=== PATIENT | female | born 1990 | race Caucasian/White ===

== ENCOUNTER 2020-09-01 13:41 | Outpatient (REF) | payer OTHER, SELFPAY ==
[2020-09-01 14:02] LABS: Basophils Absolute Auto 0.1 X10*3/uL (0.0-0.2); Basophils Percent Auto 0.6 % (0-2); Eosinophils Percent Auto 0.4 % (0-4); Hematocrit 41.1 % (37-47); Hemoglobin 13.2 g/dl (12.0-16.0); Imm Gran Abs Auto 0.03 X10*3/uL (0.00-0.03); Imm Gran Pct Auto 0.3 % (0.0-0.4); Lymphocytes Absolute Auto 2.9 X10*3/uL (1.2-4.9); Lymphocytes Percent Auto 27.7 % (20-40); MANUAL DIFF FLAG NO; Mean Corpuscular HGB Conc 32.1 g/dl (31.0-35.0); Mean Corpuscular Hemoglobin 26.2 pg (27.0-33.0); Mean Corpuscular Volume 81.5 fL (80-98); Mean Platelet Volume 11.3 fL (9.4-12.3); Monocytes Absolute Auto 0.8 X10*3/uL (0.1-1.2); Monocytes Percent Auto 7.6 % (2-11); Neutrophils Absolute Auto 6.5 X10*3/uL (2.0-8.3); Neutrophils Percent Auto 63.4 % (45-73); Platelet Count 304 X10*3/uL (160-400); Red Blood Count 5.04 X10*6/uL (4.20-5.50); Red Cell Distribution Width 14.8 % (11.0-16.0); White Blood Count 10.3 X10*3/uL (4.8-10.8)
[2020-09-01 14:48] LABS: Alanine Aminotransferase 15 U/L (0-31); Albumin Level 4.3 g/dL (3.5-5.0); Alkaline Phosphatase 93 U/L (39-117); Anion Gap 11 (12-20); Aspartate Amino Transferase 13 U/L (5-31); Bilirubin Total 0.7 mg/dL (0.0-1.0); Blood Urea Nitrogen 7 mg/dL (9-16); Calcium 9.2 mg/dL (8.4-10.2); Carbon Dioxide 26 mmol/L (22-29); Chloride 107 mmol/L (96-108); Cholesterol 109 mg/dL; Estimated Glomerular Filt Rate > 60; Glucose Fasting 96 mg/dL (60-99); HDL Cholesterol 39 mg/dL; LDL Cholesterol Calculated 53 mg/dl; Sodium 140 mmol/L (135-145); Total Protein 6.9 g/dL (6.5-8.0); Triglycerides 88 mg/dL
[2020-09-01 15:10] LABS: TSH reflex Free T4 0.93 uIU/mL (0.32-4.0)
== END 2020-09-01 13:42 | disposition home or self-care (01) ==
LOC: HO.LAB 13:41
PROVIDERS: Visit Provider Internal Medicine
DX: I10 Essential (primary) hypertension (principal); E78.5 Hyperlipidemia, unspecified; E83.42 Hypomagnesemia; E87.6 Hypokalemia; E78.00 Pure hypercholesterolemia, unspecified; R00.2 Palpitations
CPT/HCPCS: 36415; 80053; 80061; 84443; 85025

== ENCOUNTER 2021-01-06 09:19 | Outpatient (REF) | payer OTHER, SELFPAY ==
--- NOTE | ~2021-01-06 | XR_ITS ---
EXAMINATION: XR CERVICAL SPINE CLINICAL INFORMATION: Cervicalgia. COMPARISON: None TECHNIQUE: 3 views of the cervical spine were obtained. FINDINGS: There is straightening of the cervical lordosis and mild rightward tilting on frontal view. The vertebral bodies are normal in height and there is no cervical vertebral compression, spondylolisthesis, destructive process, or prevertebral soft tissue swelling. The odontoid appears intact. There is some minor spurring anteriorly at C5-C6. No focal disc narrowing or endplate sclerosis or erosive changes. XR/XR cervical spine 2V IMPRESSION: 1. Straightening of the cervical lordosis. 2. Mild anterior spurring at C5-C6. 3. No vertebral compression, disc narrowing, or subluxation.
== END 2021-01-06 09:20 | disposition home or self-care (01) ==
LOC: HO.XRAY 09:19
PROVIDERS: PCP Internal Medicine; Visit Provider Nurse Practitioner Family
DX: M54.2 Cervicalgia (principal)
CPT/HCPCS: 72040

== ENCOUNTER 2021-12-19 07:38 | Outpatient (REF) | payer OTHER, SELFPAY ==
--- NOTE | ~2021-12-19 | XR_ITS ---
EXAMINATION: CHEST AND ABDOMEN. CLINICAL INFORMATION: Hemoptysis. COMPARISON: None TECHNIQUE: Chest 2 views. Abdomen 2 views. FINDINGS: CHEST: The lungs are well-expanded and clear of acute process. The heart size and pulmonary vascularity is normal. No gross bony abnormality seen. ABDOMEN: There is scattered stool and gas seen throughout the colon without any significant distention. The small bowel loops are normal caliber. There is no organomegaly. There is abnormal segmentation of lumbar vertebrae with 6 lumbar vertebrae noted. No lytic or sclerotic process seen. XR/XR chest 2V IMPRESSION: Unremarkable chest exam. Mild constipation.
--- NOTE | ~2021-12-19 | XR_ITS ---
EXAMINATION: CHEST AND ABDOMEN. CLINICAL INFORMATION: Hemoptysis. COMPARISON: None TECHNIQUE: Chest 2 views. Abdomen 2 views. FINDINGS: CHEST: The lungs are well-expanded and clear of acute process. The heart size and pulmonary vascularity is normal. No gross bony abnormality seen. ABDOMEN: There is scattered stool and gas seen throughout the colon without any significant distention. The small bowel loops are normal caliber. There is no organomegaly. There is abnormal segmentation of lumbar vertebrae with 6 lumbar vertebrae noted. No lytic or sclerotic process seen. XR/XR abdomen min 2V IMPRESSION: Unremarkable chest exam. Mild constipation.
[2021-12-19 08:17] LABS: MANUAL DIFF FLAG NO
[2021-12-19 08:27] LABS: Basophils Absolute Auto 0.1 X10*3/uL (0.0-0.2); Basophils Percent Auto 0.8 % (0-2); Eosinophils Absolute Auto 0.1 X10*3/uL (0.0-0.4); Eosinophils Percent Auto 1.8 % (0-4); Hematocrit 40.8 % (37.0-47.0); Hemoglobin 13.2 g/dl (12.0-16.0); Imm Gran Abs Auto 0.01 X10*3/uL (0.00-0.03); Imm Gran Pct Auto 0.1 % (0.0-0.4); Lymphocytes Absolute Auto 2.2 X10*3/uL (1.2-4.9); Lymphocytes Percent Auto 30.1 % (20-40); Mean Corpuscular HGB Conc 32.4 g/dl (31.0-35.0); Mean Corpuscular Hemoglobin 27.1 pg (27.0-33.0); Mean Corpuscular Volume 83.8 fL (80.0-98.0); Mean Platelet Volume 10.5 fL (9.4-12.3); Monocytes Absolute Auto 0.6 X10*3/uL (0.1-1.2); Neutrophils Absolute Auto 4.4 x10*3/uL (2.0-8.3); Neutrophils Percent Auto 59.2 % (45-73); Platelet Count 303 X10*3/uL (160-400); Red Blood Count 4.87 X10*6/uL (4.20-5.50); Red Cell Distribution Width 13.8 % (11.0-16.0); White Blood Count 7.4 X10*3/uL (4.8-10.8)
[2021-12-19 08:50] LABS: Alanine Aminotransferase 13 U/L (0-31); Alkaline Phosphatase 120 U/L (39-117); Anion Gap 12 (12-20); Aspartate Amino Transferase 13 U/L (5-31); Bilirubin Total 0.6 mg/dL (0.0-1.0); Blood Urea Nitrogen 9 mg/dL (9-16); Calcium 9.5 mg/dL (8.4-10.2); Carbon Dioxide 20 mmol/L (22-29); Chloride 110 mmol/L (96-108); Cholesterol 138 mg/dL; Estimated Glomerular Filt Rate > 60; Glucose Fasting 120 mg/dL (60-99); HDL Cholesterol 39 mg/dL; LDL Cholesterol Calculated 87 mg/dl; Sodium 138 mmol/L (135-145); Total Protein 6.8 g/dL (6.5-8.0); Triglycerides 63 mg/dL
[2021-12-19 09:14] LABS: TSH reflex Free T4 1.13 uIU/mL (0.32-4.0); Vitamin D 25-OH Total 12.1 ng/mL (>30)
[2021-12-19 09:44] LABS: Appearance Urine HAZY; Color Urine YELLOW; Glucose Urine UA NEG (NEG); Leukocyte Esterase Urine NEG (NEG); Nitrite Urine NEG (NEG); Specific Gravity - Urine >= 1.030 (1.005-1.025); UACC Culture Trigger NO; Urine Blood TRACE (NEG); Urine Ketones NEG (NEG); Urine Protein NEG (NEG-TRACE)
[2021-12-19 09:54] LABS: Mucus Urine 2+ /LPF; RBC Urine 0-2 /HPF (0); Squamous Epithelial Cell Urine 2+ /LPF; WBC Urine 0-2 /HPF (0-4)
[2021-12-20 05:01] LABS: DHEA Sulfate 232 mcg/dL (19-237)
[2021-12-23 17:48] LABS: Testosterone, Total 34 ng/dL (2-45)
== END 2021-12-19 07:39 | disposition home or self-care (01) ==
LOC: HO.LAB 07:38
PROVIDERS: PCP Internal Medicine; Visit Provider Internal Medicine
DX: Z00.00 Encounter for general adult medical examination without abnormal findings (principal); R10.9 Unspecified abdominal pain; U07.1 COVID-19; R04.2 Hemoptysis; K59.00 Constipation, unspecified; L67.8 Other hair color and hair shaft abnormalities; E55.9 Vitamin D deficiency, unspecified
CPT/HCPCS: 36415; 71046; 74019; 80053; 80061; 81001; 82306; 82627; 84402; 84403; 84443; 85025

== ENCOUNTER → 2022-01-12 10:21 | Outpatient (BNVA) | payer OTHER, SELFPAY | PROVIDERS: PCP Internal Medicine; Visit Provider Nurse Practitioner | DX: R10.11 Right upper quadrant pain (principal); R19.7 Diarrhea, unspecified; K64.9 Unspecified hemorrhoids | CPT/HCPCS: 99202 ==

== ENCOUNTER 2022-08-16 08:47 | Outpatient (REF) | payer OTHER, SELFPAY ==
[2022-08-16 11:58] LABS: MANUAL DIFF FLAG NO
[2022-08-16 12:15] LABS: Basophils Percent Auto 0.4 % (0-2); Eosinophils Absolute Auto 0.1 X10*3/uL (0.0-0.4); Eosinophils Percent Auto 1.5 % (0-4); Hematocrit 40.8 % (37.0-47.0); Hemoglobin 13.3 g/dl (12.0-16.0); Imm Gran Abs Auto 0.02 X10*3/uL (0.00-0.03); Imm Gran Pct Auto 0.3 % (0.0-0.4); Lymphocytes Absolute Auto 2.3 X10*3/uL (1.2-4.9); Lymphocytes Percent Auto 31.6 % (20-40); Mean Corpuscular HGB Conc 32.6 g/dl (31.0-35.0); Mean Corpuscular Hemoglobin 27.4 pg (27.0-33.0); Mean Corpuscular Volume 84.1 fL (80.0-98.0); Mean Platelet Volume 11.7 fL (9.4-12.3); Monocytes Absolute Auto 0.6 X10*3/uL (0.1-1.2); Monocytes Percent Auto 7.8 % (2-11); Neutrophils Absolute Auto 4.3 x10*3/uL (2.0-8.3); Neutrophils Percent Auto 58.4 % (45-73); Platelet Count 313 X10*3/uL (160-400); Red Blood Count 4.85 X10*6/uL (4.20-5.50); Red Cell Distribution Width 13.9 % (11.0-16.0); White Blood Count 7.3 X10*3/uL (4.8-10.8)
[2022-08-16 12:50] LABS: Alanine Aminotransferase 11 U/L (0-31); Albumin Level 4.3 g/dL (3.5-5.0); Alkaline Phosphatase 111 U/L (39-117); Anion Gap 15 (12-20); Aspartate Amino Transferase 13 U/L (5-31); Bilirubin Total 0.6 mg/dL (0.0-1.0); Blood Urea Nitrogen 8 mg/dL (9-16); C Reactive Protein 0.33 mg/dL (< or = 0.50); Calcium 9.3 mg/dL (8.4-10.2); Carbon Dioxide 23 mmol/L (22-29); Chloride 108 mmol/L (96-108); Estimated Glomerular Filt Rate > 60; Glucose Random 103 mg/dL (60-115); Potassium 4.5 mmol/L (3.3-5.1); Sodium 141 mmol/L (135-145); TSH reflex Free T4 1.19 uIU/mL (0.32-4.0); Total Protein 6.8 g/dL (6.5-8.0); Vitamin D 25-OH Total 29.5 ng/mL (>30)
[2022-08-16 12:52] LABS: Estimated Average Glucose 94 mg/dL; Hemoglobin A1c % 4.9 %
[2022-08-16 12:55] LABS: Erythrocyte Sedimentation Rate 5 MM/HR (0-20)
[2022-08-19 19:09] LABS: CK-BB None Detected (None Detected); CK-MB 0 % (<5); CK-MM 100 % (95-100); Creatine Kinase,Total,Serum 56 U/L (29-143)
== END 2022-08-16 08:48 | disposition home or self-care (01) ==
LOC: HO.HMGCLDS 08:47
PROVIDERS: Visit Provider Internal Medicine
DX: E55.9 Vitamin D deficiency, unspecified (principal); M79.10 Myalgia, unspecified site; R53.83 Other fatigue; R73.9 Hyperglycemia, unspecified
CPT/HCPCS: 36415; 80053; 82306; 82552; 83036; 84443; 85025; 85652; 86140

== ENCOUNTER 2022-11-23 12:51 | Outpatient (AMB) | payer OTHER, SELFPAY ==
[2022-11-23 13:03] VITALS: BP 122/80; PULSE 101; O2SAT 99; BMI 30.4
--- NOTE | 2022-11-23 13:03 | MHC.PC.OV ---
Vital Signs 11/23/22 13:03 11/23/22 13:39 Height 5 ft 4 in Weight 177 lb 6 oz BMI 30.4 BP 122/80 136/88 Blood Pressure Location Lt brachial Lt brachial Position Sitting Sitting Pulse 101 H Pulse Source Pulse Oximeter Pulse Oximetry (%) 99 Oxygen Delivery Method Room Air Intake Visit Reasons: PE Intake Note: Patient is here for a physicazl exam. Slipman Required: No Accompanied by: Self / Same As Patient Allergies atenolol Allergy (Verified 09/14/24 14:57) Rash phentermine Adverse Reaction (Severe, Verified 09/14/24 14:57) very high blood pressure Medication List - Last Reconciled 11/23/22 by Markie Bowers MD acetaminophen (Tylenol Extra Strength) 500 mg PO Q6H PRN cholecalciferol (vitamin D3) 50 mcg PO DAILY 90 days dicyclomine 10 mg PO QID hydrocortisone 2.5% (Proctosol HC) 1 appl UT BID PRN hydroxyzine HCl 25 mg PO TID PRN 30 days metoprolol succinate ER 25 mg PO DAILY 90 days Tobacco use date assessed: 11/23/22 HPI PE HPI Details Patient comes in today for her annual physical examination States that she feels okay Denies any headaches or dizziness Denies any chest pains, no SOB No nausea/vomiting, no abdominal pain No change in bowel habits noted Denies any acute urinary symptoms Needs her Metoprolol Rx refilled Would like to know how she did on her labs done back in July 2022 [facility] Medical History (Updated 09/15/24 @ 22:32 by Markie Bowers MD) Vitamin D deficiency Constipation Neck pain Elevated blood pressure reading Obesity (BMI 30-39.9) Palpitations Hypokalemia Hypomagnesemia Anxiety Surgical History History of tonsillectomy Hx of tubal ligation (~2018) Hx of section Family History Mother Diabetes Father Mental problem Social History Housing: Apartment Alcohol intake: never Patient Tobacco Use Status: Never used Tobacco e-Cigarette/Vaping Use: Never Used Second Hand Smoke Exposure: No service: No Current occupational status: employed 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 1. Little interest or pleasure in doing things: not at all 2. Feeling down, depressed, or hopeless: not at all 3. Trouble falling or staying asleep, or sleeping too much: not at all 4. Feeling tired or having little energy: not at all 5. Poor appetite or overeating: not at all 6. Feeling bad about yourself - or that you are a failure or have let yourself or your family down: not at all 7. Trouble concentrating on things, such as reading the newspaper or watching television: not at all 8. Moving or speaking so slowly that other people could have noticed. Or the opposite - being so fidgety or restless that you have been moving around a lot more than usual: not at all 9. Thoughts that you would be better off or of hurting yourself in some way: not at all Total score: 0 Depression Screening Interpretation: Negative 99969 - PHQ-9 Billing: Yes Source: Developed by Drs. Marcus Quigley, Edith Pineda, Mike Orosco and colleagues, with an educational nils from [employer]. Thrive Questionnaire Date Thrive assessed: 11/23/22 I am a: Patient What is your living situation today?: I have a steady place to live Within the past 12 months, did the food you bought not last and you didn't have the money to get more?: Never true Within the past 12 months, did you worry whether your food would run out before you got money to buy more?: Never true Do you have trouble paying for medicines?: No Do you have trouble getting transportation to medical appointments?: No Do you have trouble paying your heating and electricity bill?: No Do you have trouble taking care of your child, family member or friend?: No Do you have trouble with day-to-day activities such as bathing, preparing meals, shopping, managing finances, etc.?: No Are you currently unemployed and looking for a job?: No Are you interested in more education?: No Currently or been in a relationship where the following occur: no concerns reported AUDIT C Alcohol Use Questionnaire (AUDIT-C) 1. How often do you have a drink containing alcohol?: Never 3. How often do you have six or more drinks on one occasion?: Never Total Score: 0 Score Reviewed/Action Taken: Yes CHARLES-7 AMB Questionnaire CHARLES-7 Date CHARLES - 7 assessed: 11/23/22 Feeling nervous, anxious, or on edge: 1 = Several days (about once a week) Not being able to stop or control worryin = Several days (about once a week) Worrying too much about different things: 0 = Not at all Trouble relaxin = Not at all Being so restless that it is hard to sit still: 0 = Not at all Becoming easily annoyed or irritable: 0 = Not at all Feeling afraid as if something awful might happen: 3 = Nearly every day Total CHARLES-7 score (0-4 normal; 5-9 mild; 10-14 moderate; 15-21 severe): 5 Source: Developed by Drs. Marcus Quigley, Edith Pineda, Mike Orosco and colleagues, with an educational nils from [employer]. CHARLES-7 Assessment Billing CHARLES-7 Assessment Tool: CHARLES-7 Assessment 62704 Review of Systems Const Denies chills, Denies fatigue, Denies fever(s), Denies headache(s) and Denies malaise Eyes Denies blurry vision, Denies change in vision, Denies irritation and Denies itchy eyes ENT Denies dysphagia, Denies dizziness, Denies otalgia, Denies headache(s), Denies nasal congestion, Denies neck pain, Denies odynophagia, Denies sinus pain and Denies sore throat Card Denies chest pain, Denies rapid heart rate, Denies irregular heart rhythm, Denies palpitations and Denies dyspnea Resp Denies chest congestion, Denies cough, Denies dyspnea and Denies wheezing GI Denies abdominal pain, Denies bloating, Denies constipation, Denies dysphagia, Denies heartburn, Denies diarrhea, Denies nausea, Denies odynophagia and Denies vomiting Denies hematuria, Denies urinary frequency, Denies dysuria, Denies urinary incontinence and Denies urinary urgency Musc Denies back pain, Denies arthralgias, Denies joint swelling, Denies muscle weakness and Denies neck pain Skin/Breast Denies breast pain, Denies breast mass, Denies change in pigmentation, Denies lesions, Denies rash and Denies unusual bruising Neuro Denies dizziness, Denies headache(s) and Denies paresthesias Psych Denies anxiety and Denies depression Endo Denies fatigue and Denies palpitations Karl/Lymph Denies easy bruising Aller/Immun Denies itchy eyes and Denies wheezing Physical exam (Primary Care) Vital Signs: Last Vital Signs Pulse 101 H 11/23/22 13:03 BP 136/88 11/23/22 13:39 Pulse Ox 99 11/23/22 13:03 Oxygen Delivery Method Room Air 11/23/22 13:03 BMI result Body Mass Index 30.4 Tobacco/Smoking Status: Tobacco use Status Tobacco use date assessed 11/23/22 11/23/22 13:11 Patient Tobacco Use Status Never used Tobacco 11/23/22 13:11 e-Cigarette/Vaping Use Never Used 11/23/22 13:11 PHQ-9: PHQ-9 Score PHQ-9: Total score 0 11/23/22 13:42 Depression Screening Interpretation: Negative Thrive Assessment: Date of Thrive Assessment Date Thrive assessed 11/23/22 11/23/22 13:11 Currently or been in a relationship where the following occur: no concerns reported Const General: no acute distress, alert and awake Orientation/consciousness: patient oriented x3 HENMT Head: Yes normocephalic and Yes atraumatic Ears: external ears normal, TM's normal bilaterally and EAC's normal General nose exam: No nasal discharge present Face and sinus: Yes normal facial exam and Yes sinuses nontender Teeth and gingiva: dentition normal Throat: Yes posterior oropharynx normal and Yes tonsils normal (no TP congestion) Eyes Eyelids: Yes eyelids normal Conjunctivae: conjunctivae normal Pupils: Equal, round and reactive pupils present EOM: EOMs intact bilaterally Neck Neck: Yes no lymphadenopathy and Yes supple Thyroid: Thyroid normal Resp Auscultation: clear to auscultation bilaterally, no rales and no wheezes Cardio Rate: regular rate Rhythm: regular rhythm Heart sounds: no murmurs GI Palpation (GI): Soft to palpation, nontender and No hepatosplenomegaly present Auscultation: normal bowel sounds General: Yes no CVA tenderness Back/Spine/Pelvis Back: no CVA tenderness Thoracic/Lumbar Spine: thoracic and lumbar spine normal to inspection Skin Lesions: no lesions Rashes: no rashes Neuro General: patient oriented x3, moves all extremities, no focal motor deficits and CN's II-XI intact bilaterally Cranial nerves: Yes Equal, round and reactive pupils present Cognition (Neuro): normal cognition Gait exam (Neuro): Normal gait present Extrem General: Yes no clubbing, cyanosis or edema Results Reviewed Results Reviewed: Laboratory Tests 08/16/22 08/16/22 08/16/22 09:01 09:01 09:01 WBC 7.3 Hgb 13.3 Hct 40.8 Plt Count 313 ESR 5 Sodium 141 Potassium 4.5 Creatinine 0.81 Estimated GFR > 60 Random Glucose 103 Hemoglobin A1c % Calcium 9.3 AST 13 ALT 11 C-Reactive Protein 0.33 25-OH Vitamin D Total 29.5 TSH 1.19 08/16/22 09:01 WBC Hgb Hct Plt Count ESR Sodium Potassium Creatinine Estimated GFR Random Glucose Hemoglobin A1c % 4.9 Calcium AST ALT C-Reactive Protein 25-OH Vitamin D Total TSH Coding Level of Care Code Est Pt Prev Care 18-39y(03200) Diagnoses Annual physical exam Z00.00 Elevated blood pressure reading R03.0 Palpitations R00.2 Vitamin D deficiency E55.9 Constipation, unspecified constipation type K59.00 Constipation type: unspecified constipation type Anxiety F41.9 Obesity (BMI 30-39.9) E66.9 Additional Codes CHARLES-7 Assessment Billing - CHARLES-7 Assessment Tool: CHARLES-7 Assessment [id number] ([id number])
[2022-11-23 13:39] VITALS: BP 136/88
== END 2022-11-23 13:37 | disposition home or self-care (01) ==
LOC: HO.HMGH 12:51
PROVIDERS: PCP Internal Medicine; Visit Provider Internal Medicine
DX: Z00.00 Encounter for general adult medical examination without abnormal findings (principal); R03.0 Elevated blood-pressure reading, without diagnosis of hypertension; R00.2 Palpitations; E55.9 Vitamin D deficiency, unspecified; K59.00 Constipation, unspecified; F41.9 Anxiety disorder, unspecified; E66.9 Obesity, unspecified
CPT/HCPCS: 99499

== ENCOUNTER 2023-06-08 13:03 | Outpatient (AMB) | payer OTHER, SELFPAY ==
[2023-06-08 13:06] VITALS: BP 138/90; PULSE 86; O2SAT 99; BMI 31.8
--- NOTE | 2023-06-08 13:06 | A.OFFPC_ITS ---
Vital Signs 06/08/23 13:06 Height 5 ft 4 in Weight 185 lb BMI 31.8 BP 138/90 H Blood Pressure Location Lt brachial Position Sitting Pulse 86 Pulse Source Pulse Oximeter Pulse Oximetry (%) 99 Oxygen Delivery Method Room Air Intake Visit Reasons: Hypertension Surgical First Assistant Required: No Accompanied by: Self / Same As Patient Allergies atenolol Allergy (Verified 06/08/23 13:07) Rash Tobacco use date assessed: 06/08/23 Dental Screening Dental Screen Date: 06/08/23 Did you have a dental visit in the last 12 months?: Yes Did you have a dental problem in the last 6 months where you did not have access to dental care?: No Was dental information given to patient?: Patient has dentist [facility] Medical History Anxiety Constipation Dyslipidemia Elevated blood pressure reading High blood pressure High cholesterol Hypertension Hypokalemia Hypomagnesemia Neck pain Obesity (BMI 30-39.9) Palpitations Vitamin D deficiency Surgical History History of tonsillectomy Hx of tubal ligation (~2019) Hx of section Family History Mother Diabetes Father Mental problem Housing: Apartment Alcohol intake: never Patient Tobacco Use Status: Never used Tobacco e-Cigarette/Vaping Use: Never Used Second Hand Smoke Exposure: No service: No Current occupational status: employed 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 1. Little interest or pleasure in doing things: not at all 2. Feeling down, depressed, or hopeless: not at all 3. Trouble falling or staying asleep, or sleeping too much: not at all 4. Feeling tired or having little energy: not at all 5. Poor appetite or overeating: not at all 6. Feeling bad about yourself - or that you are a failure or have let yourself or your family down: not at all 7. Trouble concentrating on things, such as reading the newspaper or watching television: not at all 8. Moving or speaking so slowly that other people could have noticed. Or the opposite - being so fidgety or restless that you have been moving around a lot more than usual: not at all 9. Thoughts that you would be better off or of hurting yourself in some way: not at all Total score: 0 Depression Screening Interpretation: Negative Depression Screening Done: Yes [id number] - PHQ-9 Billing: Yes Source: Developed by Drs. Marcus Quigley, Edith Pineda, Mike Orosco and colleagues, with an educational nils from [employer]. Thrive Questionnaire Date Thrive assessed: 06/08/23 I am a: Patient What is your living situation today?: I have a steady place to live Within the past 12 months, did the food you bought not last and you didn't have the money to get more?: Never true Within the past 12 months, did you worry whether your food would run out before you got money to buy more?: Never true Do you have trouble paying for medicines?: No Do you have trouble getting transportation to medical appointments?: No Do you have trouble paying your heating and electricity bill?: No Do you have trouble taking care of your child, family member or friend?: No Do you have trouble with day-to-day activities such as bathing, preparing meals, shopping, managing finances, etc.?: No Are you currently unemployed and looking for a job?: No Are you interested in more education?: No Please select the resources that you would like help with: None Currently or been in a relationship where the following occur: no concerns reported AUDIT C Alcohol Use Questionnaire (AUDIT-C) 1. How often do you have a drink containing alcohol?: Never 3. How often do you have six or more drinks on one occasion?: Never Total Score: 0 Score Reviewed/Action Taken: Yes CHARLES-7 AMB Questionnaire CHARLES-7 Date CHARLES - 7 assessed: 06/08/23 Feeling nervous, anxious, or on edge: 1 = Several days (about once a week) Not being able to stop or control worryin = Several days (about once a week) Worrying too much about different things: 0 = Not at all Trouble relaxin = Not at all Being so restless that it is hard to sit still: 0 = Not at all Becoming easily annoyed or irritable: 0 = Not at all Feeling afraid as if something awful might happen: 3 = Nearly every day Total CHARLES-7 score (0-4 normal; 5-9 mild; 10-14 moderate; 15-21 severe): 5 Source: Developed by Drs. Marcus Quigley, Edith Pineda, Mike Orosco and colleagues, with an educational nils from [employer]. CHARLES-7 Assessment Billing CHARLES-7 Assessment Tool: CHARLES-7 Assessment 45134 Physical exam (Primary Care) Vital Signs: Last Vital Signs Pulse 86 06/08/23 13:06 BP 138/90 H 06/08/23 13:06 Pulse Ox 99 06/08/23 13:06 Oxygen Delivery Method Room Air 06/08/23 13:06 BMI result Body Mass Index 31.8 Tobacco/Smoking Status: Tobacco use Status Tobacco use date assessed 06/08/23 06/08/23 13:07 Patient Tobacco Use Status Never used Tobacco 06/08/23 13:07 e-Cigarette/Vaping Use Never Used 06/08/23 13:07 PHQ-9: PHQ-9 Score PHQ-9: Total score 0 06/08/23 13:45 Depression Screening Interpretation: Negative Thrive Assessment: Date of Thrive Assessment Date Thrive assessed 06/08/23 06/08/23 13:07 Currently or been in a relationship where the following occur: no concerns reported Assessment and Plan Assessment & Plan Orders: Orders Complete Blood Count Auto Diff 3 Months I10 - Essential (primary) hypertension Comprehensive [place]. Panel Fast 3 Months E78.00 - Pure hypercholesterolemia, unspecified Lipid Panel 3 Months E78.00 - Pure hypercholesterolemia, unspecified TSH reflex Free T4 3 Months E78.00 - Pure hypercholesterolemia, unspecified UA CC w/rflx Micro + Cult 3 Months R30.0 - Dysuria Medications: New tizanidine 4 mg PO BEDTIME PRN 30 tabs 0RF muscle spasms/neck pain phentermine must administer 30 minutes before or 1-2 hours after breakfast 37.5 mg PO DAILY 30 caps 0RF Refilled metoprolol succinate ER 25 mg PO DAILY 90 days 90 tabs 1RF R00.2 - Palpitations Coding Additional Codes CHARLES-7 Assessment Billing - CHARLES-7 Assessment Tool: CHARLES-7 Assessment [id number] ([id number])
--- NOTE | 2023-06-08 13:06 | MHC.PC.OV ---
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: No Accompanied by: Self / Same As Patient Allergies atenolol Allergy (Verified 09/14/24 14:57) Rash phentermine Adverse Reaction (Severe, Verified 09/14/24 14:57) very high blood pressure Medication List - Last Reconciled 09/16/24 by Markie Bowers MD acetaminophen (Tylenol Extra Strength) 500 mg PO Q6H PRN cholecalciferol (vitamin D3) 50 mcg PO DAILY 90 days dicyclomine 10 mg PO QID PRN metoprolol succinate ER 25 mg PO DAILY 90 days tirzepatide (weight loss) (Zepbound) 2.5 mg subcut QWEEK Tobacco use date assessed: 06/08/23 Dental Screening Dental Screen Date: 06/08/23 Did you have a dental visit in the last 12 months?: Yes Did you have a dental problem in the last 6 months where you did not have access to dental care?: No Was dental information given to patient?: Patient has dentist HPI Hypertension HPI Details Patient comes in today for her follow up visit States that she has been experiencing increased pain and spasms over her neck lately She does not recall any recent injury or trauma to her neck States that she feels okay otherwise She denies any headaches or dizziness Denies any chest pains, no shortness of breath No nausea/vomiting, no abdominal pain No change in bowel habits noted Needs her metoprolol Rx refilled Would also like to see if she can get something to help her with weight loss She has no follow-up labs done recently [facility] Medical History (Updated 09/15/24 @ 22:32 by Markie Bowers MD) Vitamin D deficiency Constipation Neck pain Elevated blood pressure reading Obesity (BMI 30-39.9) Palpitations Hypokalemia Hypomagnesemia Anxiety Surgical History History of tonsillectomy Hx of tubal ligation (~2018) Hx of section Family History Mother Diabetes Father Mental problem Social History Housing: Apartment Alcohol intake: never Patient Tobacco Use Status: Never used Tobacco e-Cigarette/Vaping Use: Never Used Second Hand Smoke Exposure: No service: No Current occupational status: employed 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 1. Little interest or pleasure in doing things: not at all 2. Feeling down, depressed, or hopeless: not at all 3. Trouble falling or staying asleep, or sleeping too much: not at all 4. Feeling tired or having little energy: not at all 5. Poor appetite or overeating: not at all 6. Feeling bad about yourself - or that you are a failure or have let yourself or your family down: not at all 7. Trouble concentrating on things, such as reading the newspaper or watching television: not at all 8. Moving or speaking so slowly that other people could have noticed. Or the opposite - being so fidgety or restless that you have been moving around a lot more than usual: not at all 9. Thoughts that you would be better off or of hurting yourself in some way: not at all Total score: 0 Depression Screening Interpretation: Negative Depression Screening Done: Yes 02889 - PHQ-9 Billing: Yes Source: Developed by Drs. Marcus Quigley, Edith Pineda, Mike Orosco and colleagues, with an educational nils from [employer]. Thrive Questionnaire Date Thrive assessed: 06/08/23 I am a: Patient What is your living situation today?: I have a steady place to live Within the past 12 months, did the food you bought not last and you didn't have the money to get more?: Never true Within the past 12 months, did you worry whether your food would run out before you got money to buy more?: Never true Do you have trouble paying for medicines?: No Do you have trouble getting transportation to medical appointments?: No Do you have trouble paying your heating and electricity bill?: No Do you have trouble taking care of your child, family member or friend?: No Do you have trouble with day-to-day activities such as bathing, preparing meals, shopping, managing finances, etc.?: No Are you currently unemployed and looking for a job?: No Are you interested in more education?: No Please select the resources that you would like help with: None Currently or been in a relationship where the following occur: no concerns reported AUDIT C Alcohol Use Questionnaire (AUDIT-C) 1. How often do you have a drink containing alcohol?: Never 3. How often do you have six or more drinks on one occasion?: Never Total Score: 0 Score Reviewed/Action Taken: Yes CHARLES-7 AMB Questionnaire CHARLES-7 Date CHARLES - 7 assessed: 06/08/23 Feeling nervous, anxious, or on edge: 1 = Several days (about once a week) Not being able to stop or control worryin = Several days (about once a week) Worrying too much about different things: 0 = Not at all Trouble relaxin = Not at all Being so restless that it is hard to sit still: 0 = Not at all Becoming easily annoyed or irritable: 0 = Not at all Feeling afraid as if something awful might happen: 3 = Nearly every day Total CHARLES-7 score (0-4 normal; 5-9 mild; 10-14 moderate; 15-21 severe): 5 Source: Developed by Drs. Marcus Quigley, Edith Pineda, Mike Orosco and colleagues, with an educational nils from [employer]. CHARLES-7 Assessment Billing CHARLES-7 Assessment Tool: CHARLES-7 Assessment 80710 Review of Systems Const Denies chills, Denies fatigue, Denies fever(s) and Denies headache(s) ENT Denies dysphagia, Denies dizziness, Denies otalgia, Denies headache(s), Reports neck pain, Denies odynophagia and Denies sore throat Card Denies chest pain, Reports palpitations (on and off palpitations) and Denies dyspnea Resp Denies chest congestion, Denies cough and Denies dyspnea GI Denies abdominal pain, Denies hematochezia, Denies constipation, Denies dysphagia, Denies heartburn, Denies diarrhea, Denies nausea, Denies odynophagia and Denies vomiting Denies difficulty voiding, Denies nocturia and Denies dysuria Musc Denies back pain and Reports neck pain Skin/Breast Denies rash Neuro Denies dizziness and Denies headache(s) Psych Denies anxiety Endo Denies fatigue and Reports palpitations (on and off palpitations) Physical exam (Primary Care) Vital Signs: Last Vital Signs Pulse 86 06/08/23 13:06 BP 138/90 H 06/08/23 13:06 Pulse Ox 99 06/08/23 13:06 Oxygen Delivery Method Room Air 06/08/23 13:06 BMI result Body Mass Index 31.8 Tobacco/Smoking Status: Tobacco use Status Tobacco use date assessed 06/08/23 06/08/23 13:07 Patient Tobacco Use Status Never used Tobacco 06/08/23 13:07 e-Cigarette/Vaping Use Never Used 06/08/23 13:07 PHQ-9: PHQ-9 Score PHQ-9: Total score 0 06/08/23 13:58 Depression Screening Interpretation: Negative Thrive Assessment: Date of Thrive Assessment Date Thrive assessed 06/08/23 06/08/23 13:07 Currently or been in a relationship where the following occur: no concerns reported Const General: no acute distress and alert HENMT Ears: TM's normal bilaterally and EAC's normal Throat: Yes posterior oropharynx normal and Yes tonsils normal (no TP congestion noted) Neck Neck: No lymphadenopathy and Yes tender Thyroid: Thyroid normal Resp Auscultation: clear to auscultation bilaterally, no rales and no wheezes Cardio Rate: regular rate Rhythm: regular rhythm Heart sounds: no murmurs GI Palpation (GI): Soft to palpation and nontender Auscultation: normal bowel sounds General: Yes no CVA tenderness Back/Spine/Pelvis Back: no CVA tenderness Cervical Spine: cervical muscular tenderness Thoracic/Lumbar Spine: No lumbar spinal tenderness Skin Rashes: no rashes Extrem General: Yes no clubbing, cyanosis or edema Coding Level of Care Code Est Pt Level 4 (62491) Diagnoses Neck pain M54.2 Elevated blood pressure reading R03.0 Palpitations R00.2 Vitamin D deficiency E55.9 Constipation, unspecified constipation type K59.00 Constipation type: unspecified constipation type Anxiety F41.9 Obesity (BMI 30-39.9) E66.9 Additional Codes CHARLES-7 Assessment Billing - CHARLES-7 Assessment Tool: CHARLES-7 Assessment 49006 ([id number])
== END 2023-06-08 14:02 | disposition home or self-care (01) ==
PROVIDERS: Visit Provider Internal Medicine
DX: M54.2 Cervicalgia (principal); R03.0 Elevated blood-pressure reading, without diagnosis of hypertension; R00.2 Palpitations; E55.9 Vitamin D deficiency, unspecified; K59.00 Constipation, unspecified; F41.9 Anxiety disorder, unspecified; E66.9 Obesity, unspecified
CPT/HCPCS: 99499

== ENCOUNTER 2024-09-14 14:18 | Outpatient (AMB) | payer OTHER, SELFPAY ==
[2024-09-14 14:20] VITALS: BP 124/82; PULSE 87; O2SAT 98; BMI 33.5
--- NOTE | 2024-09-14 14:20 | A.OFFPC_ITS ---
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 Required: No Accompanied by: Self / Same As Patient Allergies atenolol Allergy (Verified 09/14/24 14:57) Rash phentermine Adverse Reaction (Severe, Verified 09/14/24 14:57) very high blood pressure Medication List - Last Reconciled 09/14/24 by Markie Bowers MD acetaminophen (Tylenol Extra Strength) 500 mg PO Q6H PRN cholecalciferol (vitamin D3) 50 mcg PO DAILY 90 days dicyclomine 10 mg PO QID PRN metoprolol succinate ER 25 mg PO DAILY 90 days tirzepatide (weight loss) (Zepbound) 2.5 mg subcut QWEEK Tobacco use date assessed: 09/14/24 Dental Screening Dental Screen Date: 09/14/24 Did you have a dental visit in the last 12 months?: Yes Did you have a dental problem in the last 6 months where you did not have access to dental care?: No Was dental information given to patient?: Patient has dentist HPI 3 month f/u HPI Details Patient comes in today follow-up visit - she has not been seen since May 2023 States that she is still experiencing and off sensations of palpitations recently and states that she sometimes also feels her heart beating forcefully but she denies any chest pains States that she feels okay otherwise She denies any headaches or dizziness Denies any increased shortness of breath No nausea/vomiting, no abdominal pain No change in bowel habits noted She is presently requesting for some prescription medication, specifically the GLP-1 inhibitor, to help her lose weight States that she has tried phentermine in the past but had to stop taking them immediately because they made her blood pressure go up significantly She needs her vitamin-D Rx refilled Patient has not had any follow-up labs done since 2022 [facility] Medical History (Updated 09/15/24 @ 22:32 by Markie Bowers MD) Vitamin D deficiency Constipation Neck pain Elevated blood pressure reading Obesity (BMI 30-39.9) Palpitations Hypokalemia Hypomagnesemia Anxiety Surgical History History of tonsillectomy Hx of tubal ligation (~2019) Hx of section Family History Mother Diabetes Father Mental problem Social History Housing: Apartment Alcohol intake: never Patient Tobacco Use Status: Never used Tobacco e-Cigarette/Vaping Use: Never Used Second Hand Smoke Exposure: No service: No Current occupational status: employed 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 1. Little interest or pleasure in doing things: not at all 2. Feeling down, depressed, or hopeless: not at all 3. Trouble falling or staying asleep, or sleeping too much: not at all 4. Feeling tired or having little energy: not at all 5. Poor appetite or overeating: not at all 6. Feeling bad about yourself - or that you are a failure or have let yourself or your family down: not at all 7. Trouble concentrating on things, such as reading the newspaper or watching television: not at all 8. Moving or speaking so slowly that other people could have noticed. Or the opposite - being so fidgety or restless that you have been moving around a lot more than usual: not at all 9. Thoughts that you would be better off or of hurting yourself in some way: not at all Total score: 0 Depression Screening Interpretation: Negative Depression Screening Done: Yes 30668 - PHQ-9 Billing: Yes Source: Developed by Drs. Marcus Quigley, Edith Pineda, Mike Orosco and colleagues, with an educational nils from [email or web address]. Thrive Questionnaire Date Thrive assessed: 09/14/24 I am a: Patient What is your living situation today?: I have a steady place to live Within the past 12 months, did the food you bought not last and you didn't have the money to get more?: Never true Within the past 12 months, did you worry whether your food would run out before you got money to buy more?: Never true Do you have trouble paying for medicines?: No Do you have trouble getting transportation to medical appointments?: No Do you have trouble paying your heating and electricity bill?: No Do you have trouble taking care of your child, family member or friend?: No Do you have trouble with day-to-day activities such as bathing, preparing meals, shopping, managing finances, etc.?: No Are you currently unemployed and looking for a job?: No Are you interested in more education?: No Please select the resources that you would like help with: None Currently or been in a relationship where the following occur: No concerns reported THRIVE Score: 0 AUDIT C Alcohol Use Questionnaire (AUDIT-C) 1. How often do you have a drink containing alcohol?: Monthly or less 2. How many drinks containing alcohol do you have on a typical day when you are drinking?: 1 or 2 3. How often do you have six or more drinks on one occasion?: Less than monthly Total Score: 2 Score Reviewed/Action Taken: Yes CHARLES-7 AMB Questionnaire CHARLES-7 Date CHARLES - 7 assessed: 09/14/24 Feeling nervous, anxious, or on edge: 1 = Several days (about once a week) Not being able to stop or control worryin = Several days (about once a week) Worrying too much about different things: 0 = Not at all Trouble relaxin = Not at all Being so restless that it is hard to sit still: 0 = Not at all Becoming easily annoyed or irritable: 0 = Not at all Feeling afraid as if something awful might happen: 3 = Nearly every day Total CHARLES-7 score (0-4 normal; 5-9 mild; 10-14 moderate; 15-21 severe): 5 Source: Developed by Drs. Marcus Quigley, Edith Pineda, Mike Orosco and colleagues, with an educational nils from [email or web address]. CHARLES-7 Assessment Billing CHARLES-7 Assessment Tool: CHARLES-7 Assessment 44137 Review of Systems Const Denies chills, Denies fatigue, Denies fever(s) and Denies headache(s) ENT Denies dysphagia, Denies dizziness, Denies otalgia, Denies headache(s), Denies neck pain, Denies odynophagia and Denies sore throat Card Denies chest pain, Reports palpitations (on & off sensation of palpitations; feels heart beating forcefully at times) and Denies dyspnea Resp Denies chest congestion, Denies cough and Denies dyspnea GI Denies abdominal pain, Reports bloating (at times), Denies hematochezia, Denies constipation, Denies dysphagia, Denies heartburn, Denies diarrhea, Denies nausea, Denies odynophagia and Denies vomiting Denies difficulty voiding, Denies nocturia and Denies dysuria Musc Denies back pain and Denies neck pain Skin/Breast Denies rash Neuro Denies dizziness and Denies headache(s) Psych Denies anxiety Endo Denies fatigue and Reports palpitations (on & off sensation of palpitations; feels heart beating forcefully at times) Physical exam (Primary Care) Vital Signs: Last Vital Signs Pulse 87 09/14/24 14:20 BP 136/98 H 09/14/24 15:01 Pulse Ox 98 09/14/24 14:20 Oxygen Delivery Method Room Air 09/14/24 14:20 BMI result Body Mass Index 33.5 Tobacco/Smoking Status: Tobacco use Status Tobacco use date assessed 09/14/24 09/14/24 14:27 Patient Tobacco Use Status Never used Tobacco 09/14/24 14:27 e-Cigarette/Vaping Use Never Used 09/14/24 14:27 PHQ-9: PHQ-9 Score PHQ-9: Total score 0 09/15/24 09:00 Depression Screening Interpretation: Negative Thrive Assessment: Date of Thrive Assessment Date Thrive assessed 09/14/24 09/14/24 14:27 Currently or been in a relationship where the following occur: No concerns reported Const General: no acute distress and alert HENMT Ears: TM's normal bilaterally and EAC's normal Throat: Yes posterior oropharynx normal and Yes tonsils normal (no TP congestion noted) Neck Neck: Yes supple and No lymphadenopathy Thyroid: Thyroid normal Resp Auscultation: clear to auscultation bilaterally, no rales and no wheezes Cardio Rate: regular rate Rhythm: regular rhythm Heart sounds: no murmurs GI Palpation (GI): Soft to palpation and nontender Auscultation: normal bowel sounds General: Yes no CVA tenderness Back/Spine/Pelvis Back: no CVA tenderness Thoracic/Lumbar Spine: No lumbar spinal tenderness Skin Rashes: no rashes Extrem General: Yes no clubbing, cyanosis or edema Coding Level of Care Code Est Pt Level 4 (91965) Diagnoses Palpitations R00.2 Elevated blood pressure reading R03.0 Vitamin D deficiency E55.9 Irritable bowel syndrome with both constipation and diarrhea K58.2 Irritable bowel syndrome type: with both diarrhea and constipation Anxiety F41.9 Obesity (BMI 30-39.9) E66.9 Additional Codes CHARLES-7 Assessment Billing - CHARLES-7 Assessment Tool: CHARLES-7 Assessment 42579 ([id number]) PHQ-9 - 06436 - PHQ-9 Billing: Yes ([id number]) Assessment & Plan Assessment & Plan (1) Palpitations: Code(s): R00.2 - Palpitations Category: Medical Plan: This is most likely related to her anxiety but as she does not appear to have had any formal work up done for this at least over the past few years, will send her for a 12-lead EKG as well as an echocardiogram for further evaluation Continue Metoprolol ER 25 mg QD for now Will also send her for some labs TUNG for further evaluation - labs will include a TSH level as well as her serum electrolytes (2) Elevated blood pressure reading: Code(s): R03.0 - Elevated blood-pressure reading, without diagnosis of hypertension Category: Medical Plan: Her blood pressure is again elevated today - advised systolic BP of 120 mm or less to be considered normal Reinforced low sodium diet but advised that her elevated blood pressure may also be partly due to anxiety She is currently on Metoprolol ER 25 mg QD but this is more for her palpitations rather than for her blood pressure Patient is reminded to continue monitoring her blood pressure regularly (3) Vitamin D deficiency: Code(s): E55.9 - Vitamin D deficiency, unspecified Category: Medical Plan: Continue Vitamin D3 2000 units QD Will recheck her Vitamin D level for follow up (4) Irritable bowel syndrome (IBS): Code(s): K58.9 - Irritable bowel syndrome, unspecified Category: Medical Qualifiers: Irritable bowel syndrome type: with both diarrhea and constipation Qualified Code(s): K58.2 - Mixed irritable bowel syndrome Plan: She likely has IBS with both constipation and diarrhea Continue Dicyclomine 10 mg QID PRN (5) Anxiety: Code(s): F41.9 - Anxiety disorder, unspecified Category: Medical Plan: Patient used to take Hydroxyzine 25 mg TID PRN but has not needed to take this in a while (6) Obesity (BMI 30-39.9): Code(s): E66.9 - Obesity, unspecified Category: Medical Plan: Reinforced diet/exercise as tolerated/lose weight Per request, will try starting her on Zepbound 2.5 mg SQ Q week help her lose weight but advised that insurance may or may not cover this, and we will then see what other options we have to help her lose weight Plan Follow-up in 3 months Orders: Orders CA echo transthoracic complete 09/14/24 R00.2 - Palpitations, R06.09 - Other forms of dyspnea Complete Blood Count Auto Diff 09/14/24 D64.9 - Anemia, unspecified TSH reflex Free T4 09/14/24 E78.00 - Pure hypercholesterolemia, unspecified Vitamin D 25-OH Total 09/14/24 E55.9 - Vitamin D deficiency, unspecified Magnesium 09/14/24 E83.42 - Hypomagnesemia ECG 12 lead EKG 09/14/24 R00.2 - Palpitations Comprehensive Gaastra. Panel Fast 09/14/24 E78.00 - Pure hypercholesterolemia, unspecified Lipid Panel 09/14/24 E78.00 - Pure hypercholesterolemia, unspecified UA CC w/rflx Micro + Cult 09/14/24 R30.0 - Dysuria Hemoglobin A1c 09/14/24 R73.9 - Hyperglycemia, unspecified Medications: Refilled cholecalciferol (vitamin D3) 50 mcg PO DAILY 90 days 90 caps 3RF E55.9 - Vitamin D deficiency, unspecified
[2024-09-14 15:01] VITALS: BP 136/98
--- OUTSIDE RECORDS SUMMARY | 2024-09-14 16:28 | XMS_ITS | Clinical Summary ---
Author Organization [facility], Address [address] [place] [address] [place] [address] Phone Care Team Providers Care Coffee Urn Attendant Name Role Phone Markie Bowers MD Primary Care Provider [phone] Medications hydroCHLOROthiazid e (HYDRODIURIL) 12.5 MG tablet 08/28/2020 Acti ve buPROPion XL (WELLBUTRIN XL) 150 MG 24 hr tablet 09/03/2020 Active Active Problems Problem Noted Date Diagnosed Date Essential (primary) hypertension 09/04/2020 Hypokalemia 09/04/2020 Social History Tobacco Use Types Packs/Day Years Used Date Smoking Tobacco: Never Assessed Alcohol Use Standard Drinks/Week Comments Not Currently 0 (1 standard drink = 0.6 oz pur e alcohol) Comments Unknown Sex and Gender Information Value Date Recorded Sex Assigned at Not on file Legal Sex Female 1:18 PM EST Gender Identity Not on file Sexual Orientation Not on file Plan of Treatment Health Maintenance Due Date Last Done Comments Hepatitis B Vaccine (1 of 3 - 19+ 3-dose series) 02/25/2007 Influenza Vaccine (#1) 2024 Pneumococcal Vaccine: Pediat rics (0 to 5 Years) and At-Risk Patients (6 to 64 Years) Aged Out No longer eligi ble based on patient's age to complete this topic Insurance [employer] Care Teams Coffee Urn Attendant Relationship Specialty Start Date End Date Markie Bowers MD [address] [place] [address] [place] [id number] PCP - General Internal Medicine 08/27/20
--- OUTSIDE RECORDS SUMMARY | 2024-09-14 16:28 | XMS_ITS | Patient Health Record ---
Author Organization [employer] [facility] Address [address] [place] [address] Support Name Relationship Address Phone ANGELITO CHARISSA Guarantor Unknown Reason For Referral No Information Medications Medication SIG (Take, Route, Frequency, Duration) Notes Start Date End Date Status Depo-Provera 150MG/ML Intramuscula EVERY 3 MONTHS for -3 Valdo-MJ 07/22/2011 Active hydroCHLOROthiazide 12.5MG 1 ORAL daily for -3 Valdo-MJ Active Problems Problem Type SNOMED Code ICD Code Onset Dates Problem Status W/U Status Risk Notes Problem Candidal vulvovaginitis (35021390) Candidiasis of vulva and vagina (112.1) Active confirmed Diag Problem Acute suppurative otitis media without spontaneous rupture of ear drum (disorder) (22155133) Acute suppurative otitis media without spontaneous rupture of eardrum (382.00) Active confirmed Diag Problem Otitis media (08766911) Unspecified otitis media (382.9) Active confirmed Diag Problem Essential hypertension (81285954) Unspecified essential hypertension (401.9) Active confirmed Diag Problem Gynecological examination normal (216847370625090) Routine gynecological examination (V72.31) Active confirmed Major Plan Of Treatment No Information Insurance Providers Payer Name Payer Address Payer Phone Subscriber Number Group Number Insured Name Patient Relationship to Insured Coverage Start Date Coverage End Date [facility] [address] [place] [address] [id number] ALEX MUELLER [facility] Child - Insured has Financial Responsibility
== END 2024-09-14 15:07 | disposition home or self-care (01) ==
PROVIDERS: PCP Internal Medicine; Visit Provider Internal Medicine
DX: R00.2 Palpitations (principal); E66.9 Obesity, unspecified; Z68.33 Body mass index [BMI] 33.0-33.9, adult; R03.0 Elevated blood-pressure reading, without diagnosis of hypertension; E55.9 Vitamin D deficiency, unspecified; K58.2 Mixed irritable bowel syndrome; F41.9 Anxiety disorder, unspecified

== ENCOUNTER → 2024-09-14 14:18 | Outpatient (BNVA) | payer OTHER, SELFPAY | PROVIDERS: PCP Internal Medicine; Visit Provider Internal Medicine | DX: R00.2 Palpitations (principal); R03.0 Elevated blood-pressure reading, without diagnosis of hypertension; E55.9 Vitamin D deficiency, unspecified; K58.2 Mixed irritable bowel syndrome; F41.9 Anxiety disorder, unspecified; E66.9 Obesity, unspecified | CPT/HCPCS: 96127; 99212 ==

== ENCOUNTER → 2024-10-03 14:15 | Outpatient (REF) | payer OTHER, SELFPAY ==
--- NOTE | 2024-10-03 14:20 | CA_ITS ---
Transthoracic Echocardiogram Patient (Last, First, Middle): Saima Rueda, Gender: Female Date of : 1990 Age: 34 Procedure Date: 10/03/2024 Procedure Type: Transthoracic Echocardiogram Location: OP Height: 162.56 cm Weight: 88.45 kg BSA: 1.94 m2 Heart Rate: 85 bpm BP: 124 / 80 mmHg Senior Chemist: KIRBY Referring MD: Markie Bowers MD Assistant County Attorney: Cal Mcdonough MD Symptoms: R06.09 - Other forms of dyspnea Study Quality: Fair ECG Rhythm: Sinus Conclusions: - Essentially normal study Findings Left Ventricle Normal left ventricular size, thickness, and systolic function. The visually estimated ejection fraction is between 60-65%. Spectral Doppler is indicative of a normal filling pattern. Right Ventricle Normal right ventricular cavity size and systolic function. Atria The left atrium is normal in size. Interatrial shunt cannot be excluded. The right atrium is normal in size. Aortic Valve The aortic valve structure and function is likely normal. There is no aortic valve stenosis. There is no aortic valve regurgitation. Mitral Valve Normal mitral valve structure and function. There is no mitral valve regurgitation. There is no mitral valve stenosis. Pulmonic Valve The pulmonic valve is likely normal. Tricuspid Valve Normal tricuspid valve structure. There is trace tricuspid valve regurgitation. The right ventricular systolic pressure is normal. The right ventricular systolic pressure is 23 mmHg. Normal right atrial pressure. There is no evidence of pulmonary hypertension. Great Vessels The pulmonary artery was not well visualized. There is no dilatation of the ascending aorta measuring 2.60 cm. Venous The inferior vena cava is normal in size and collapses greater than 50% with inspiration. Pericardium/Pleural There is no evidence of pericardial effusion. Prior Study Comparison No prior study available for comparison. Measurements 2D Linear Measurements IVSd: 0.77 0.6-0.9/0.6-1.0 cm LVIDd: 4.27 3.9-5.3/4.2-5.9 cm LVIDd Index: 2.20 2.4-3.2/2.2-3.1 cm/m2 LVIDs: 3.15 2.0-3.6 cm LVPWd: 0.69 0.7-1.1 cm LA Diam: 3.40 2.7-3.8/3.0-4.0 cm LAIDs Index: 1.75 1.5-2.3 cm/m2 LV Mass: 114.08 67-162/88-224 g LV Mass Index: 58.80 43-95/49-115 g/m2 LVOT Diam: 1.90 3.0+(-)1.3 cm 2D Systolic Function EF 4C: 66.00 >55% EF 2C: 60.90 >55% EF BiP: 63.50 >55% Mitral Valve MV Pk E: 0.88 MV PK A: 0.62 MV Decel Time: 113.00 E/A: 1.40 E'Lateral: 16.30 E'Medial: 9.36 E/E' Med: 9.40 E/E' Lat: 5.40 PHT: 33.00 MVA PHT: 6.67 Decel [place]: 7.80 Aortic Valve AoV Pk John: 1.54 AoV Pk Grad: 9.00 SALOME: 2.05 LVOT LVOT Pk John: 1.20 LVOT Mn John: 0.85 LVOT VTI: 0.24 LVOT Pk Grad: 6.00 LVOT Mn Grad: 4.00 LVOT Diam: 1.90 LVOT Area: 2.84 Diastolic Function MV Pk E: 0.88 MV Pk A: 0.62 E/A: 1.40 E'Medial: 9.36 E/E' Med: 9.40 E' Laterial: 16.30 E/E' Lat: 5.40 Right Ventricle TAPSE (mm): 28.90 TVS' John: 14.90 Tricuspid Valve TR Pk John: 2.21 TR Pk Grad: 20.00 RA Press: 3.00 RVSP: 23.00 Great Vessels Aorta Sinus of Valsalva: 2.60 2.0-3.5 cm Ao Asc: 2.60 2.1-3.4 cm Pulmonary Valve PV Pk John: 1.27 Peak PV Grad: 6.00 Updated in Other Vendor System with Status of Final Cal Mcdonough MD electronically signed on 10/04/2024 12:12:01 PM with status of Final
--- NOTE | 2024-10-03 14:20 | ECG_ITS ---
Test Reason : palps Blood Pressure : */* mmHG Vent. Rate : 89 BPM Atrial Rate : 89 BPM P-R Int : 136 ms QRS Dur : 84 ms QT Int : 374 ms P-R-T Axes : 30 49 6 degrees QTcB Int : 455 ms Normal sinus rhythm Normal ECG No previous ECGs available Referred By: Markie Bowers Electronically Signed By: Eamon Oakley
--- OUTSIDE RECORDS SUMMARY | 2024-10-03 16:37 | XMS_ITS | Patient Health Record ---
Author Organization [facility] [facility] Address [address] [place] [address] Support Name Relationship Address Phone ANGELITO CHARISSA [...] W/U Status Risk Notes Problem Candidal vulvovaginitis (89792967) Candidiasis of vulva and vagina (112.1) Active confirmed Diag Problem Acute suppurative otitis media without spontaneous rupture of ear drum (disorder) (26107321) Acute suppurative otitis media without spontaneous rupture of eardrum (382.00) Active confirmed Diag Problem Otitis media (26335342) Unspecified otitis media (382.9) Active confirmed Diag Problem Essential hypertension (82978949) Unspecified essential hypertension (401.9) Active confirmed Diag Problem Gynecological examination normal (667965424702772) Routine gynecological examination (V72.31) Active confirmed Major Plan Of Treatment No Information Insurance Providers Payer Name Payer Address Payer Phone Subscriber Number Group Number Insured Name Patient Relationship to Insured Coverage Start Date Coverage End Date [facility] [address] [place] [address] [id number] ALEX MUELLER [facility] Child - Insured has Financial Responsibility
--- OUTSIDE RECORDS SUMMARY | 2024-10-03 16:37 | XMS_ITS | Clinical Summary ---
Author Organization [facility], Address [address] [place] [address] [place] [address] Phone Care Team Providers Care Telecommunication Equipment Repairer Name Role Phone Markie Bowers MD Primary Care Provider [phone]- [phone] Medications hydroCHLOROthiazid e (HYDRODIURIL) 12.5 MG tablet [...] complete this topic Insurance [employer] Care Teams Telecommunication Equipment Repairer Relationship Specialty Start Date End Date Markie Bowers MD [address] [place] [address] [place] [id number] PCP - General Internal Medicine 08/27/20
== END ==
LOC: HO.CARD 14:15
PROVIDERS: PCP Internal Medicine; Visit Provider Internal Medicine
DX: R06.09 Other forms of dyspnea (principal); R00.2 Palpitations
CPT/HCPCS: 93005; 93306

== ENCOUNTER → 2024-10-03 14:20 | Outpatient (BNV) | payer OTHER, SELFPAY | PROVIDERS: PCP Internal Medicine; Visit Provider Internal Medicine Cardiovascular Disease | DX: R06.09 Other forms of dyspnea (principal); R00.2 Palpitations | CPT/HCPCS: 93010; 93306 ==

== ENCOUNTER 2024-10-16 07:56 | Outpatient (REF) | payer OTHER, SELFPAY ==
--- OUTSIDE RECORDS SUMMARY | 2024-10-16 08:01 | XMS_ITS | Clinical Summary ---
Author Organization [facility], Address [address] [place] [address] [place] [address] Phone Care Team Providers Care Fermentation Scientist Name Role Phone Markie Bowers MD Primary Care Provider +1- [phone] Medications hydroCHLOROthiazid e (HYDRODIURIL) 12.5 MG tablet [...] complete this topic Insurance [employer] Care Teams Fermentation Scientist Relationship Specialty Start Date End Date Markie Bowers MD [address] [place] [address] [place] [id number] PCP - General Internal Medicine 08/27/20
--- OUTSIDE RECORDS SUMMARY | 2024-10-16 08:01 | XMS_ITS | Patient Health Record ---
Author Organization [facility] Address [address] [place] [address] Support Name Relationship Address Phone CHARISSA EATON Guarantor Unknown Reason For Referral No Information Medications Medication SIG (Take, Route, Frequency, Duration) Notes Start Date End Date Status Depo-Provera 150MG/ML Intramuscula EVERY 3 MONTHS for -3 Valdo-MJ 07/22/2011 Active hydroCHLOROthiazide 12.5MG 1 ORAL daily for -3 Valdo-MJ Active Problems Problem Type SNOMED Code ICD Code Onset Dates Problem Status W/U Status Risk Notes Problem Candidal vulvovaginitis (74083519) Candidiasis of vulva and vagina (112.1) Active confirmed Diag Problem Acute suppurative otitis media without spontaneous rupture of ear drum (disorder) (11535764) Acute suppurative otitis media without spontaneous rupture of eardrum (382.00) Active confirmed Diag Problem Otitis media (25662191) Unspecified otitis media (382.9) Active confirmed Diag Problem Essential hypertension (19085093) Unspecified essential hypertension (401.9) Active confirmed Diag Problem Gynecological examination normal (031249407905133) Routine gynecological examination (V72.31) Active confirmed Major Plan Of Treatment No Information Insurance Providers Payer Name Payer Address Payer Phone Subscriber Number Group Number Insured Name Patient Relationship to Insured Coverage Start Date Coverage End Date [facility] [address] [place] [address] [id number] ALEX MUELLER [facility] Child - Insured has Financial Responsibility
[2024-10-16 08:18] LABS: MANUAL DIFF FLAG NO
[2024-10-16 08:42] LABS: Appearance Urine Clear; Color Urine Yellow; Glucose Urine UA Negative (Negative); Leukocyte Esterase Urine Negative (Negative); Nitrite Urine Negative (Negative); PH 5.5 (5.0-9.0); Specific Gravity - Urine >= 1.030 (1.005-1.025); UMIC TRIGGER UACC YES; Urine Blood Large (3+) (Negative); Urine Ketones Negative (Negative); Urine Protein Trace mg/dL (Neg-Trace)
[2024-10-16 08:45] LABS: Basophils Percent Auto 0.6 % (0-2); Eosinophils Absolute Auto 0.1 X10*3/uL (0.0-0.4); Eosinophils Percent Auto 0.9 % (0-4); Hematocrit 38.9 % (37.0-47.0); Hemoglobin 12.9 g/dl (12.0-16.0); Imm Gran Abs Auto 0.01 X10*3/uL (0.00-0.03); Imm Gran Pct Auto 0.1 % (0.0-0.4); Lymphocytes Percent Auto 28.8 % (20-40); Mean Corpuscular HGB Conc 33.2 g/dl (31.0-35.0); Mean Corpuscular Hemoglobin 27.2 pg (27.0-33.0); Mean Corpuscular Volume 81.9 fL (80.0-98.0); Mean Platelet Volume 10.3 fL (9.4-12.3); Monocytes Absolute Auto 0.6 X10*3/uL (0.1-1.2); Monocytes Percent Auto 8.2 % (2-11); Neutrophils Absolute Auto 4.3 x10*3/uL (2.0-8.3); Neutrophils Percent Auto 61.4 % (45-73); Platelet Count 310 X10*3/uL (160-400); Red Blood Count 4.75 X10*6/uL (4.20-5.50); Red Cell Distribution Width 13.9 % (11.0-16.0)
[2024-10-16 08:45] LABS: Bacteria Urine None Seen (None Seen); Hyaline Casts Urine 0-2 /LPF (0-2); RBC Urine >20 /HPF (0-2); Squamous Epithelial Cell Urine 0-2 /HPF (0-2); WBC Urine 0-5 /HPF (0-5)
[2024-10-16 09:00] LABS: Estimated Average Glucose 94 mg/dL; Hemoglobin A1C 105.2284 umol/L; Hemoglobin A1c % 4.9 % (<6.0); Total Hemoglobin (HGBA1C) 3501.6781 umol/L
[2024-10-16 09:30] LABS: Alanine Aminotransferase 14 U/L (0-31); Albumin Level 4.3 g/dL (3.5-5.0); Alkaline Phosphatase 96 U/L (39-117); Anion Gap 9 (12-20); Aspartate Amino Transferase 21 U/L (5-31); Bilirubin Total 0.7 mg/dL (0.0-1.0); Blood Urea Nitrogen 11 mg/dL (9-16); Calcium 8.9 mg/dL (8.4-10.2); Carbon Dioxide 21 mmol/L (22-29); Chloride 114 mmol/L (96-108); Cholesterol 132 mg/dL (<200); Estimated Glomerular Filt Rate > 60; Glucose Fasting 89 mg/dL (60-99); HDL Cholesterol 38 mg/dL (>40); LDL Cholesterol Calculated 80 mg/dL (<100); Magnesium 1.9 mg/dL (1.6-2.6); Potassium 3.6 mmol/L (3.3-5.1); Sodium 140 mmol/L (135-145); Triglycerides 73 mg/dL (<150)
[2024-10-16 09:53] LABS: TSH reflex Free T4 1.27 uIU/mL (0.32-4.0); Vitamin D 25-OH Total 22.9 ng/mL (>30)
== END 2024-10-16 07:57 | disposition home or self-care (01) ==
LOC: HO.LAB 07:56
PROVIDERS: Visit Provider Internal Medicine
DX: E78.00 Pure hypercholesterolemia, unspecified (principal); R73.9 Hyperglycemia, unspecified; D64.9 Anemia, unspecified; E55.9 Vitamin D deficiency, unspecified; E83.42 Hypomagnesemia; R30.0 Dysuria
CPT/HCPCS: 36415; 80053; 80061; 81001; 82306; 83036; 83735; 84443; 85025

== ENCOUNTER 2024-11-26 14:54 | Outpatient (AMB) | payer OTHER, SELFPAY ==
--- OUTSIDE RECORDS SUMMARY | 2024-11-26 14:58 | XMS_ITS | Patient Health Record ---
Author Organization [facility] Address [address] [place] [address] Support Name Relationship Address Phone ANGELITO CHARISSA [...] W/U Status Risk Notes Problem Candidal vulvovaginitis (06839773) Candidiasis of vulva and vagina (112.1) Active confirmed Diag Problem Acute suppurative otitis media without spontaneous rupture of ear drum (disorder) (10057428) Acute suppurative otitis media without spontaneous rupture of eardrum (382.00) Active confirmed Diag Problem Otitis media (99483428) Unspecified otitis media (382.9) Active confirmed Diag Problem Essential hypertension (08678169) Unspecified essential hypertension (401.9) Active confirmed Diag Problem Gynecological examination normal (540661767405715) Routine gynecological examination (V72.31) Active confirmed Major Plan Of Treatment No Information Insurance Providers Payer Name Payer Address Payer Phone Subscriber Number Group Number Insured Name Patient Relationship to Insured Coverage Start Date Coverage End Date [facility] [address] [place] [address] [id number] ALEX MUELLER [facility] Child - Insured has Financial Responsibility
--- OUTSIDE RECORDS SUMMARY | 2024-11-26 14:58 | XMS_ITS | Clinical Summary ---
Author Organization [facility], Address [address] [place] [address] [place] [address] Phone Care Team Providers Care Merchandise Deliverer Name Role Phone Markie Bowers MD Primary Care Provider +1- [phone] Medications hydroCHLOROthiazid e (HYDRODIURIL) 12.5 MG tablet [...] - 19+ 3-dose series) 02/25/2007 Influenza Vaccine (Season Ended) 2025 Pneumococcal Vaccine: Peds ( 0 to 5 Years) and At-Risk Patients (6 to 49 Years) Aged Out No longer eligible b ased on patient's age to complete this topic Insurance [employer] Care Teams Merchandise Deliverer Relationship Specialty Start Date End Date Markie Bowers MD [address] [place] [address] [place] [id number] PCP - General Internal Medicine 08/27/20
[2024-11-26 15:14] VITALS: BP 130/84; PULSE 86; O2SAT 98; BMI 31.2
--- NOTE | 2024-11-26 15:14 | MHC.PC.OV ---
Vital Signs 11/26/24 15:14 11/26/24 15:35 Height 5 ft 4 in Weight 182 lb BMI 31.2 BP 130/84 136/90 H Blood Pressure Location Lt brachial Lt brachial Position Sitting Sitting Pulse 86 Pulse Source Pulse Oximeter Pulse Oximetry (%) 98 Oxygen Delivery Method Room Air Intake Visit Reasons: annual exam Log Hauler Required: No Accompanied by: Self / Same As Patient Allergies atenolol Allergy (Verified 11/26/24 15:27) Rash phentermine Adverse Reaction (Severe, Verified 11/26/24 15:27) very high blood pressure Medication List - Last Reconciled 11/26/24 by Markie Bowers MD acetaminophen (Tylenol Extra Strength) 500 mg PO Q6H PRN cholecalciferol (vitamin D3) 50 mcg PO DAILY 90 days dicyclomine 10 mg PO QID PRN metoprolol succinate ER 25 mg PO DAILY 90 days tirzepatide 5 mg (0.5 mL) subcut QWEEK Tobacco use date assessed: 11/26/24 Dental Screening Dental Screen Date: 11/26/24 Did you have a dental visit in the last 12 months?: Yes Did you have a dental problem in the last 6 months where you did not have access to dental care?: No Was dental information given to patient?: Patient has dentist HPI annual exam HPI Details Patient comes in today for her annual physical examination States that she has been experiencing increased constipation for the past few days States that she has tried some OTC stool softeners/laxatives recently without any significant relief Patient states that she feels okay otherwise She denies any headaches or dizziness Denies any chest pains, no SOB No nausea/vomiting, no abdominal pain No change in bowel habits noted She denies any acute urinary symptoms She goes to [facility] on [facility] for her annual exam and has an appointment scheduled to see them next month [facility] Medical History Vitamin D deficiency Constipation Neck pain Elevated blood pressure reading Obesity (BMI 30-39.9) Palpitations Hypokalemia Hypomagnesemia Anxiety Surgical History History of tonsillectomy Hx of tubal ligation (~2018) Hx of section Family History Mother Diabetes Father Mental problem Social History Housing: Apartment Alcohol intake: never Patient Tobacco Use Status: Never used Tobacco e-Cigarette/Vaping Use: Never Used Second Hand Smoke Exposure: No service: No Current occupational status: employed 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 1. Little interest or pleasure in doing things: not at all 2. Feeling down, depressed, or hopeless: not at all 3. Trouble falling or staying asleep, or sleeping too much: several days 4. Feeling tired or having little energy: several days 5. Poor appetite or overeating: not at all 6. Feeling bad about yourself - or that you are a failure or have let yourself or your family down: not at all 7. Trouble concentrating on things, such as reading the newspaper or watching television: not at all 8. Moving or speaking so slowly that other people could have noticed. Or the opposite - being so fidgety or restless that you have been moving around a lot more than usual: not at all 9. Thoughts that you would be better off or of hurting yourself in some way: not at all Total score: 2 Depression Screening Interpretation: Negative Depression Screening Done: Yes 70564 - PHQ-9 Billing: Yes Source: Developed by Drs. Marcus Quigley, Edith Pineda, Mike Orosco and colleagues, with an educational nils from [employer]. Thrive Questionnaire Date Thrive assessed: 11/26/24 I am a: Patient What is your living situation today?: I have a steady place to live Within the past 12 months, did the food you bought not last and you didn't have the money to get more?: Never true Within the past 12 months, did you worry whether your food would run out before you got money to buy more?: Never true Do you have trouble paying for medicines?: No Do you have trouble getting transportation to medical appointments?: No Do you have trouble paying your heating and electricity bill?: No Do you have trouble taking care of your child, family member or friend?: No Do you have trouble with day-to-day activities such as bathing, preparing meals, shopping, managing finances, etc.?: No Are you currently unemployed and looking for a job?: No Are you interested in more education?: No Please select the resources that you would like help with: None Currently or been in a relationship where the following occur: No concerns reported THRIVE Score: 0 AUDIT C Alcohol Use Questionnaire (AUDIT-C) 1. How often do you have a drink containing alcohol?: Never 3. How often do you have six or more drinks on one occasion?: Never Total Score: 0 Score Reviewed/Action Taken: Yes CHARLES-7 AMB Questionnaire CHARLES-7 Date CHARLES - 7 assessed: 11/26/24 Feeling nervous, anxious, or on edge: 1 = Several days Not being able to stop or control worryin = Several days Worrying too much about different things: 1 = Several days Trouble relaxin = Not at all Being so restless that it is hard to sit still: 0 = Not at all Becoming easily annoyed or irritable: 1 = Several days Feeling afraid as if something awful might happen: 0 = Not at all Total CHARLES-7 score (0-4 normal; 5-9 mild; 10-14 moderate; 15-21 severe): 4 Source: Developed by Drs. Marcus Quigley, Edith Pineda, Mike Orosco and colleagues, with an educational nils from [employer]. Review of Systems Const Denies chills, Denies fatigue, Denies fever(s), Denies headache(s) and Denies malaise Eyes Denies blurry vision, Denies change in vision, Denies irritation and Denies itchy eyes ENT Denies dysphagia, Denies dizziness, Denies otalgia, Denies headache(s), Denies nasal congestion, Denies neck pain, Denies odynophagia, Denies sinus pain and Denies sore throat Card Denies chest pain, Denies rapid heart rate, Denies irregular heart rhythm, Denies palpitations and Denies dyspnea Resp Denies chest congestion, Denies cough, Denies dyspnea and Denies wheezing GI Denies abdominal pain, Denies bloating, Reports constipation (increasing lately), Denies dysphagia, Denies heartburn, Denies diarrhea, Denies nausea, Denies odynophagia and Denies vomiting Denies hematuria, Denies urinary frequency, Denies dysuria, Denies urinary incontinence and Denies urinary urgency Musc Denies back pain, Denies arthralgias, Denies joint swelling, Denies muscle weakness and Denies neck pain Skin/Breast Denies breast pain, Denies breast mass, Denies change in pigmentation, Denies lesions, Denies rash and Denies unusual bruising Neuro Denies dizziness, Denies headache(s) and Denies paresthesias Psych Denies anxiety and Denies depression Endo Denies fatigue and Denies palpitations Karl/Lymph Denies easy bruising Aller/Immun Denies itchy eyes and Denies wheezing Physical exam (Primary Care) Vital Signs: Last Vital Signs Pulse 86 11/26/24 15:14 BP 136/90 H 11/26/24 15:35 Pulse Ox 98 11/26/24 15:14 Oxygen Delivery Method Room Air 11/26/24 15:14 BMI result Body Mass Index 31.2 Tobacco/Smoking Status: Tobacco use Status Tobacco use date assessed 11/26/24 11/26/24 15:16 Patient Tobacco Use Status Never used Tobacco 11/26/24 15:16 e-Cigarette/Vaping Use Never Used 11/26/24 15:16 PHQ-9: PHQ-9 Score PHQ-9: Total score 2 11/27/24 18:19 Depression Screening Interpretation: Negative Thrive Assessment: Date of Thrive Assessment Date Thrive assessed 11/26/24 11/26/24 15:16 Currently or been in a relationship where the following occur: No concerns reported Const General: no acute distress, alert and awake Orientation/consciousness: patient oriented x3 HENMT Head: Yes normocephalic and Yes atraumatic Ears: external ears normal, TM's normal bilaterally and EAC's normal General nose exam: No nasal discharge present Face and sinus: Yes normal facial exam and Yes sinuses nontender Teeth and gingiva: dentition normal Throat: Yes posterior oropharynx normal and Yes tonsils normal (no TP congestion) Eyes Eyelids: Yes eyelids normal Conjunctivae: conjunctivae normal Pupils: Equal, round and reactive pupils present EOM: EOMs intact bilaterally Neck Neck: Yes no lymphadenopathy and Yes supple Thyroid: Thyroid normal Resp Auscultation: clear to auscultation bilaterally, no rales and no wheezes Cardio Rate: regular rate Rhythm: regular rhythm Heart sounds: no murmurs GI Palpation (GI): Soft to palpation, nontender and No hepatosplenomegaly present Auscultation: normal bowel sounds General: Yes no CVA tenderness Back/Spine/Pelvis Back: no CVA tenderness Thoracic/Lumbar Spine: thoracic and lumbar spine normal to inspection Skin Lesions: no lesions Rashes: no rashes Neuro General: patient oriented x3, moves all extremities, no focal motor deficits and CN's II-XI intact bilaterally Cranial nerves: Yes Equal, round and reactive pupils present Cognition (Neuro): normal cognition Gait exam (Neuro): Normal gait present Extrem General: Yes no clubbing, cyanosis or edema Coding Level of Care Code Est Pt Prev Care 18-39y(17959) Diagnoses Annual physical exam Z00.00 Palpitations R00.2 Elevated blood pressure reading R03.0 Vitamin D deficiency E55.9 Irritable bowel syndrome with both constipation and diarrhea K58.2 Irritable bowel syndrome type: with both diarrhea and constipation Constipation, unspecified constipation type K59.00 Constipation type: unspecified constipation type Anxiety F41.9 Obesity (BMI 30-39.9) E66.9 Additional Codes PHQ-9 - 05960 - PHQ-9 Billing: Yes ([id number]) Assessment & Plan Assessment & Plan (1) Annual physical exam: Code(s): Z00.00 - Encounter for general adult medical examination without abnormal findings Category: Medical Plan: Check labs Patient goes to [facility] on [facility] for her annual exam and has an appointment scheduled to see them next month (2) Palpitations: Code(s): R00.2 - Palpitations Category: Medical Plan: This is most likely related to her anxiety but as she does not appear to have had any formal work up done for this at least over the past few years, she was sent for a 12-lead EKG and echocardiogram for further evaluation Both came out normal Continue Metoprolol ER 25 mg QD for now (3) Elevated blood pressure reading: Code(s): R03.0 - Elevated blood-pressure reading, without diagnosis of hypertension Category: Medical Plan: Her blood pressure is again elevated today - advised systolic BP of 120 mm or less to be considered normal Reinforced low sodium diet but advised that her elevated blood pressure may also be partly due to anxiety She is currently on Metoprolol ER 25 mg QD but this is more for her palpitations rather than for her blood pressure Patient is reminded to continue monitoring her blood pressure regularly (4) Vitamin D deficiency: Code(s): E55.9 - Vitamin D deficiency, unspecified Category: Medical Plan: Continue Vitamin D3 2000 units QD Will recheck her Vitamin D level for follow up (5) Irritable bowel syndrome (IBS): Code(s): K58.9 - Irritable bowel syndrome, unspecified Category: Medical Qualifiers: Irritable bowel syndrome type: with both diarrhea and constipation Qualified Code(s): K58.2 - Mixed irritable bowel syndrome Plan: She likely has IBS with both constipation and diarrhea Continue Dicyclomine 10 mg QID PRN (6) Constipation: Code(s): K59.00 - Constipation, unspecified Category: Medical Qualifiers: Constipation type: unspecified constipation type Qualified Code(s): K59.00 - Constipation, unspecified Plan: Patient is encouraged on increased oral fluids and dietary fiber Will start her on Amitiza 8 mcg BID (7) Anxiety: Code(s): F41.9 - Anxiety disorder, unspecified Category: Medical Plan: Patient used to take Hydroxyzine 25 mg TID PRN but has not needed to take this in a while (8) Obesity (BMI 30-39.9): Code(s): E66.9 - Obesity, unspecified Category: Medical Plan: Reinforced diet/exercise as tolerated/lose weight Per request, we started her on Zepbound 2.5 mg SQ Q week previously help her lose weight Will now go ahead and increase her dose to 5 mg SQ once a week Plan Follow-up in 4 months Orders: Orders TSH reflex Free T4 11/26/24 E78.00 - Pure hypercholesterolemia, unspecified, Z00.00 - Encounter for general adult medical examination without abnormal findings Vitamin D 25-OH Total 11/26/24 E55.9 - Vitamin D deficiency, unspecified, Z00.00 - Encounter for general adult medical examination without abnormal findings Complete Blood Count Auto Diff 11/26/24 D64.9 - Anemia, unspecified, Z00.00 - Encounter for general adult medical examination without abnormal findings Comprehensive Mercer. Panel Fast 11/26/24 E78.00 - Pure hypercholesterolemia, unspecified, Z00.00 - Encounter for general adult medical examination without abnormal findings Lipid Panel 11/26/24 E78.00 - Pure hypercholesterolemia, unspecified, Z00.00 - Encounter for general adult medical examination without abnormal findings UA CC w/rflx Micro + Cult 11/26/24 R30.0 - Dysuria, Z00.00 - Encounter for general adult medical examination without abnormal findings Medications: New lubiprostone (Amitiza) 8 mcg PO BID 30 days 60 caps 3RF Changed From tirzepatide 5 mg (0.5 mL) subcut QWEEK 2 mL 1RF To tirzepatide 7.5 mg (0.5 mL) subcut QWEEK 4 weeks 2 mL 1RF
[2024-11-26 15:35] VITALS: BP 136/90
== END 2024-11-26 15:47 | disposition home or self-care (01) ==
LOC: HO.HMCH 14:55
PROVIDERS: PCP Internal Medicine; Visit Provider Internal Medicine
DX: Z00.00 Encounter for general adult medical examination without abnormal findings (principal); R00.2 Palpitations; E66.9 Obesity, unspecified; Z68.31 Body mass index [BMI] 31.0-31.9, adult; R03.0 Elevated blood-pressure reading, without diagnosis of hypertension; E55.9 Vitamin D deficiency, unspecified; K58.2 Mixed irritable bowel syndrome; K59.00 Constipation, unspecified; F41.9 Anxiety disorder, unspecified

== ENCOUNTER → 2024-11-26 14:54 | Outpatient (BNVA) | payer OTHER, SELFPAY | PROVIDERS: PCP Internal Medicine; Visit Provider Internal Medicine | DX: Z00.00 Encounter for general adult medical examination without abnormal findings (principal); R00.2 Palpitations; R03.0 Elevated blood-pressure reading, without diagnosis of hypertension; E55.9 Vitamin D deficiency, unspecified; K58.2 Mixed irritable bowel syndrome; K59.00 Constipation, unspecified; F41.9 Anxiety disorder, unspecified; E66.9 Obesity, unspecified; E78.00 Pure hypercholesterolemia, unspecified; Z68.31 Body mass index [BMI] 31.0-31.9, adult | CPT/HCPCS: 96127; 99395 ==

== ENCOUNTER 2025-03-20 14:07 | Outpatient (REF) | payer OTHER, SELFPAY ==
[2025-03-20 14:43] LABS: MANUAL DIFF FLAG NO
[2025-03-20 14:53] LABS: Hematocrit 37.7 % (37.0-47.0); Hemoglobin 13.0 g/dl (12.0-16.0); Imm Gran Abs Auto 0.03 X10*3/uL (0.00-0.03); Imm Gran Pct Auto 0.3 % (0.0-0.4); Lymphocytes Absolute Auto 2.4 X10*3/uL (1.2-4.9); Mean Corpuscular HGB Conc 34.5 g/dl (31.0-35.0); Mean Corpuscular Hemoglobin 27.7 pg (27.0-33.0); Mean Corpuscular Volume 80.2 fL (80.0-98.0); NRBC Abs Auto 0.000 X10*3/uL (0.0-0.012); NRBC Pct Auto 0.0 /100WBC (0.0-0.2); Platelet Count 295 X10*3/uL (160-400); Red Blood Count 4.70 X10*6/uL (4.20-5.50); White Blood Count 10.0 X10*3/uL (4.8-10.8)
[2025-03-20 15:34] LABS: Appearance Urine Clear; Glucose Urine UA Negative (Negative); PH 5.5 (5.0-9.0); Specific Gravity - Urine >= 1.030 (1.005-1.025); UMIC TRIGGER UACC YES
[2025-03-20 16:14] LABS: Alanine Aminotransferase 12 U/L (0-31); Albumin Level 4.5 g/dL (3.5-5.0); Alkaline Phosphatase 106 U/L (39-117); Anion Gap 12 (12-20); Aspartate Amino Transferase 24 U/L (5-31); Blood Urea Nitrogen 10 mg/dL (9-16); Calcium 9.1 mg/dL (8.4-10.2); Carbon Dioxide 23 mmol/L (22-29); Chloride 109 mmol/L (96-108); Cholesterol 138 mg/dL (<200); Estimated Glomerular Filt Rate > 60; HDL Cholesterol 37 mg/dL (>40); Lipase 58 U/L (8-78); Potassium 3.6 mmol/L (3.3-5.1); Sodium 140 mmol/L (135-145); Total Protein 7.1 g/dL (6.5-8.0); Triglycerides 59 mg/dL (<150)
--- OUTSIDE RECORDS SUMMARY | 2025-03-20 16:25 | XMS_ITS | Patient Health Record ---
Author Organization [facility] Address [address] [place] [address] Support Name Relationship Address Phone ANGELITO CHARISSA Guarantor Unknown [phone] Reason For Referral No Information Medications Medication SIG (Take, Route, Frequency, Duration) Notes Start Date End Date Status Depo-Provera 150MG/ML Intramuscula EVERY 3 MONTHS; Duration: -3 Valdo-MJ 07/22/2011 Active hydroCHLOROthiazide 12.5MG 1 ORAL daily; Duration: -3 Valdo-MJ 07/08/2011 Active Problems Problem Type SNOMED Code ICD Code Onset Dates Problem Status W/U Status Risk Notes Problem Candidal vulvovaginitis (37054228) Candidiasis of vulva and vagina (112.1) Active confirmed Diag Problem Acute suppurative otitis media without spontaneous rupture of ear drum (disorder) (54333741) Acute suppurative otitis media without spontaneous rupture of eardrum (382.00) Active confirmed Diag Problem Otitis media (93363051) Unspecified otitis media (382.9) Active confirmed Diag Problem Essential hypertension (92619689) Unspecified essential hypertension (401.9) Active confirmed Diag Problem Gynecological examination normal (685275848331069) Routine gynecological examination (V72.31) Active confirmed Major Plan Of Treatment No Information Insurance Providers Payer Name Payer Address Payer Phone Subscriber Number Group Number Insured Name Patient Relationship to Insured Coverage Start Date Coverage End Date [facility] [address] [place] [address] [id number] ALEX MUELLER Child - Insured has Financial Responsibility
--- OUTSIDE RECORDS SUMMARY | 2025-03-20 16:25 | XMS_ITS | Clinical Summary ---
Author Organization [facility], Address [address] [place] [address] [place] [address] Phone Care Team Providers Care Visitor Services Technician Name Role Phone Markie Bowers MD Primary Care Provider [phone] Medications hydroCHLOROthiazid e (HYDRODIURIL) 12.5 MG tablet [...] 19+ 3-dose series) 02/25/2007 Influenza Vaccine (#1) 2025 Pneumococcal Vaccine: Peds ( 0 to 5 Years) and At-Risk Patients (6 to 49 Years) Aged Out No longer eligible b ased on patient's age to complete this topic Insurance [employer] Care Teams Visitor Services Technician Relationship Specialty Start Date End Date Markie Bowers MD [address] [place] [address] [place] [phone] PCP - General Internal Medicine 08/27/20
== END 2025-03-20 14:08 | disposition home or self-care (01) ==
LOC: HO.LAB 14:07
PROVIDERS: PCP Internal Medicine; Visit Provider Internal Medicine
DX: Z00.00 Encounter for general adult medical examination without abnormal findings (principal); D64.9 Anemia, unspecified; E78.00 Pure hypercholesterolemia, unspecified; E55.9 Vitamin D deficiency, unspecified; R10.9 Unspecified abdominal pain; R30.0 Dysuria
CPT/HCPCS: 36415; 80053; 80061; 81001; 82306; 83690; 84443; 85025; 85652

== ENCOUNTER 2025-03-29 16:33 | Outpatient (AMB) | payer OTHER, SELFPAY ==
[2025-03-29 16:39] VITALS: BP 132/96; PULSE 81; O2SAT 98; BMI 27.2
--- NOTE | 2025-03-29 16:39 | A.OFFPC_ITS ---
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 Required: No Accompanied by: Self / Same As Patient Allergies atenolol Allergy (Verified 03/29/25 17:27) Rash phentermine Adverse Reaction (Severe, Verified 03/29/25 17:27) very high blood pressure Medication List - Last Reconciled 03/30/25 by Markie Bowers MD acetaminophen (Tylenol Extra Strength) 500 mg PO Q6H PRN cholecalciferol (vitamin D3) 50 mcg PO DAILY 90 days dicyclomine 10 mg PO QID PRN linaclotide (Linzess) 145 mcg PO QAM 30 days metoprolol succinate ER 25 mg PO DAILY 90 days nystatin (Nystop) 1 appl topical TID tirzepatide (weight loss) 10 mg (0.5 mL) subcut QWEEK 4 weeks Tobacco use date assessed: 03/29/25 Dental Screening Dental Screen Date: 03/29/25 Did you have a dental visit in the last 12 months?: No Did you have a dental problem in the last 6 months where you did not have access to dental care?: No Was dental information given to patient?: Patient has dentist HPI 4 month follow up HPI Details Patient comes in today for her follow up visit States that she feels okay She has been able to lose a lot of weight (almost 25 lbs) since she was started on her GLP-1 injection a few months ago She is currently on Zepbound 10 mg once a week and states that she is at least tolerating this dose although she feels that ever since she started taking the injections, she has been feeling bloated and her stomach feels like it is not digesting her food properly States that she currently eats only 1 meal a day now and even that does not help relieve significantly her bloated sensation in her stomach States that her symptoms got worse and she started experiencing abdominal pain when the dose of her Zepbound was increased to 12.5 mg recently so she asked to have her dose reduced back to 10 mg Adds that since she lost a lot of weight, she has been noticing a foul smell coming from her lower abdomen were the skin folds hang over her lower abdomen and hip area She denies any headaches or dizziness Denies any chest pain, no shortness of breath No nausea/vomiting and no change in bowel habits noted She had her follow-up labs done last week - to discuss her results [facility] Medical History (Updated 03/30/25 @ 13:44 by Markie Bowers MD) Overweight (BMI 25.0-29.9) Vitamin D deficiency Constipation Neck pain Elevated blood pressure reading Obesity (BMI 30-39.9) Palpitations Hypokalemia Hypomagnesemia Anxiety Surgical History History of tonsillectomy Hx of tubal ligation (~2019) Hx of section Family History Mother Diabetes Father Mental problem Social History Housing: Apartment Alcohol intake: never Patient Tobacco Use Status: Never used Tobacco e-Cigarette/Vaping Use: Never Used Second Hand Smoke Exposure: No service: No Current occupational status: employed 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 1. Little interest or pleasure in doing things: not at all 2. Feeling down, depressed, or hopeless: not at all 3. Trouble falling or staying asleep, or sleeping too much: several days 4. Feeling tired or having little energy: several days 5. Poor appetite or overeating: not at all 6. Feeling bad about yourself - or that you are a failure or have let yourself or your family down: not at all 7. Trouble concentrating on things, such as reading the newspaper or watching television: not at all 8. Moving or speaking so slowly that other people could have noticed. Or the opposite - being so fidgety or restless that you have been moving around a lot more than usual: not at all 9. Thoughts that you would be better off or of hurting yourself in some way: not at all Total score: 2 Depression Screening Interpretation: Negative Depression Screening Done: Yes 86043 - PHQ-9 Billing: Yes Source: Developed by Drs. Marcus Quigley, Edith Pineda, Mike Orosco and colleagues, with an educational nils from [employer]. Thrive Questionnaire Date Thrive assessed: 03/29/25 I am a: Patient What is your living situation today?: I have a steady place to live Within the past 12 months, did the food you bought not last and you didn't have the money to get more?: Never true Within the past 12 months, did you worry whether your food would run out before you got money to buy more?: Never true Do you have trouble paying for medicines?: No Do you have trouble getting transportation to medical appointments?: No Do you have trouble paying your heating and electricity bill?: No Do you have trouble taking care of your child, family member or friend?: No Do you have trouble with day-to-day activities such as bathing, preparing meals, shopping, managing finances, etc.?: No Are you currently unemployed and looking for a job?: No Are you interested in more education?: No Please select the resources that you would like help with: None Currently or been in a relationship where the following occur: No concerns reported THRIVE Score: 0 AUDIT C Alcohol Use Questionnaire (AUDIT-C) 1. How often do you have a drink containing alcohol?: Never 3. How often do you have six or more drinks on one occasion?: Never Total Score: 0 Score Reviewed/Action Taken: Yes CHARLES-7 AMB Questionnaire CHARLES-7 Date CHARLES - 7 assessed: 03/29/25 Feeling nervous, anxious, or on edge: 1 = Several days Not being able to stop or control worryin = Several days Worrying too much about different things: 1 = Several days Trouble relaxin = Not at all Being so restless that it is hard to sit still: 0 = Not at all Becoming easily annoyed or irritable: 1 = Several days Feeling afraid as if something awful might happen: 0 = Not at all Total CHARLES-7 score (0-4 normal; 5-9 mild; 10-14 moderate; 15-21 severe): 4 Source: Developed by Drs. Marcus Quigley, Edith Pineda, Mike Orosco and colleagues, with an educational nils from [employer]. Review of Systems Const Denies chills, Denies fatigue, Denies fever(s) and Denies headache(s) ENT Denies dysphagia, Denies dizziness, Denies otalgia, Denies headache(s), Denies neck pain, Denies odynophagia and Denies sore throat Card Denies chest pain, Denies rapid heart rate, Denies irregular heart rhythm, Denies palpitations and Denies dyspnea Resp Denies chest congestion, Denies cough and Denies dyspnea GI Denies abdominal pain, Reports bloating, Reports constipation (increasing lately), Denies dysphagia, Reports early satiety, Denies heartburn, Denies diarrhea, Denies nausea, Denies odynophagia and Denies vomiting Denies difficulty voiding, Denies dysuria and Denies urinary urgency Musc Denies back pain and Denies neck pain Skin/Breast Reports as per HPI and Denies rash Neuro Denies dizziness, Denies headache(s) and Denies paresthesias Psych Denies anxiety and Denies depression Endo Denies fatigue and Denies palpitations Karl/Lymph Denies easy bruising Physical exam (Primary Care) Vital Signs: Last Vital Signs Pulse 81 03/29/25 16:39 BP 130/84 03/29/25 17:33 Pulse Ox 98 03/29/25 16:39 Oxygen Delivery Method Room Air 03/29/25 16:39 BMI result Body Mass Index 27.2 Tobacco/Smoking Status: Tobacco use Status Tobacco use date assessed 03/29/25 03/29/25 16:44 Patient Tobacco Use Status Never used Tobacco 03/29/25 16:44 e-Cigarette/Vaping Use Never Used 03/29/25 16:44 PHQ-9: PHQ-9 Score PHQ-9: Total score 2 03/29/25 18:47 Depression Screening Interpretation: Negative Thrive Assessment: Date of Thrive Assessment Date Thrive assessed 03/29/25 03/29/25 16:44 Currently or been in a relationship where the following occur: No concerns reported Const General: no acute distress and alert HENMT Ears: TM's normal bilaterally and EAC's normal Throat: Yes posterior oropharynx normal and Yes tonsils normal (no TP congestion) Neck Neck: Yes supple and No lymphadenopathy Thyroid: Thyroid normal Resp Auscultation: clear to auscultation bilaterally, no rales and no wheezes Cardio Rate: regular rate Rhythm: regular rhythm Heart sounds: no murmurs GI Palpation (GI): Soft to palpation and nontender Auscultation: normal bowel sounds General: Yes no CVA tenderness Back/Spine/Pelvis Back: no CVA tenderness Thoracic/Lumbar Spine: No lumbar spinal tenderness Skin Rashes: no rashes Extrem General: Yes no clubbing, cyanosis or edema Results Reviewed Results Reviewed: Laboratory Tests 10/16/24 03/20/25 03/20/25 08:15 14:36 14:40 WBC 7.0 10.0 Hgb 13.0 Hct 37.7 Plt Count 295 ESR 12 Sodium 140 Potassium 3.6 Creatinine 0.85 Estimated GFR > 60 Random Glucose 110 Calcium 9.1 AST 24 ALT 12 Triglycerides 59 Cholesterol 138 LDL Cholesterol, Calc 90 HDL Cholesterol 37 L Lipase 58 25-OH Vitamin D Total 37.3 TSH 1.23 Ur Specific [place] >= 1.030 H Urine Protein Trace Urine Glucose (UA) Negative Urine Blood Negative Urine Nitrite Negative Ur Leukocyte Esterase Trace H Coding Level of Care Code Est Pt Level 4 (31559) Diagnoses Palpitations R00.2 Elevated blood pressure reading R03.0 Vitamin D deficiency E55.9 Irritable bowel syndrome with both constipation and diarrhea K58.2 Irritable bowel syndrome type: with both diarrhea and constipation Constipation, unspecified constipation type K59.00 Constipation type: unspecified constipation type Anxiety F41.9 Overweight (BMI 25.0-29.9) E66.3 Additional Codes PHQ-9 - 90075 - PHQ-9 Billing: Yes ([id number]) Assessment & Plan Assessment & Plan (1) Palpitations: Code(s): R00.2 - Palpitations Category: Medical Plan: This is most likely related to her anxiety 12-lead EKG and echocardiogram done earlier this year in September 2024 both came out normal Continue Metoprolol ER 25 mg QD for symptomatic relief/control (2) Elevated blood pressure reading: Code(s): R03.0 - Elevated blood-pressure reading, without diagnosis of hypertension Category: Medical Plan: Her blood pressure is still slightly elevated today - advised systolic BP of 120 mm or less to be considered normal Reinforced low sodium diet but advised that her elevated blood pressure may also be partly due to anxiety She is currently on Metoprolol ER 25 mg QD but this is more for her symptoms of palpitations rather than for her blood pressure Patient is reminded to continue monitoring her blood pressure regularly (3) Vitamin D deficiency: Code(s): E55.9 - Vitamin D deficiency, unspecified Category: Medical Plan: Continue Vitamin D3 2000 units QD Results of her labs done last week reviewed and discussed with patient - she is advised that her labs are all mostly within normal range (4) Irritable bowel syndrome (IBS): Code(s): K58.9 - Irritable bowel syndrome, unspecified Category: Medical Qualifiers: Irritable bowel syndrome type: with both diarrhea and constipation Qualified Code(s): K58.2 - Mixed irritable bowel syndrome Plan: She likely has IBS with both constipation and diarrhea Continue Dicyclomine 10 mg QID PRN (5) Constipation: Code(s): K59.00 - Constipation, unspecified Category: Medical Qualifiers: Constipation type: unspecified constipation type Qualified Code(s): K59.00 - Constipation, unspecified Plan: Patient is encouraged on increased oral fluids and dietary fiber intake Continue Linzess 145 mcg Q AM She is advised that her recent abdominal symptoms of recurrent bloating sensation of slow digestion of her stomach are mostly side effects of her GLP-1 injection Patient was not able to tolerate Zepbound at 12.5 mg but seems to be doing okay on the 10 mg dose (6) Anxiety: Code(s): F41.9 - Anxiety disorder, unspecified Category: Medical Plan: Patient used to take Hydroxyzine 25 mg TID PRN but has not needed to take this in a while Have offered to start her back on something to help with her anxiety but patient declined - states that she prefers not to take anything for anxiety at this time but will call for Rx if she feels that she needs to go back on some medications (7) Overweight (BMI 25.0-29.9): Code(s): E66.3 - Overweight Category: Medical Plan: Reinforced diet/exercise as tolerated/lose weight Patient has lost almost 25 lbs since she was started on Zepbound a few months ago Continue Zepbound 10 mg SQ once a week - she is currently down to 158 lb and advised that at her height of 5 ft 4 in tall, her goal would be to get down to somewhere between 135-140 lbs and to keep it there Plan Follow up in 4 months Will have patient recheck some follow-up labs again in 4 months before she comes back for her next appointment Orders: Orders 2 Complete Blood Count Auto Diff 4 Months D64.9 - Anemia, unspecified, R63.4 - Abnormal weight loss Lipase 4 Months R10.9 - Unspecified abdominal pain, R63.4 - Abnormal weight loss TSH reflex Free T4 4 Months E78.00 - Pure hypercholesterolemia, unspecified, R63.4 - Abnormal weight loss Comprehensive Met. Panel 4 Months R63.4 - Abnormal weight loss UA CC w/rflx Micro + Cult 4 Months R30.0 - Dysuria, R63.4 - Abnormal weight loss Medications: New nystatin (Nystop) 1 appl topical TID 60 grams 5RF
[2025-03-29 17:33] VITALS: BP 130/84
--- OUTSIDE RECORDS SUMMARY | 2025-03-29 17:58 | XMS_ITS | Clinical Summary ---
Author Organization [facility], Address [address] [place] [address] [place] [address] Phone Care Team Providers Care Air Conditioning Service Technician Name Role Phone Markie Bowers MD Primary Care Provider [phone]- [phone] Medications hydroCHLOROthiazid e (HYDRODIURIL) 12.5 MG tablet [...] age to complete this [place] [address] Care Teams Air Conditioning Service Technician Relationship Specialty Start Date End Date Markie Bowers MD [address] [place] [address] [place] [phone] PCP - General Internal Medicine 08/27/20
--- OUTSIDE RECORDS SUMMARY | 2025-03-29 17:58 | XMS_ITS | Patient Health Record ---
Author Organization [employer] [facility] Address [address] [place] [address] Support Name Relationship Address Phone ANGELITO CHARISSA [...] W/U Status Risk Notes Problem Candidal vulvovaginitis (88264214) Candidiasis of vulva and vagina (112.1) Active confirmed Diag Problem Acute suppurative otitis media without spontaneous rupture of ear drum (disorder) (31215203) Acute suppurative otitis media without spontaneous rupture of eardrum (382.00) Active confirmed Diag Problem Otitis media (12222507) Unspecified otitis media (382.9) Active confirmed Diag Problem Essential hypertension (49564892) Unspecified essential hypertension (401.9) Active confirmed Diag Problem Gynecological examination normal (260335542752866) Routine gynecological examination (V72.31) Active confirmed Major Plan Of Treatment No Information Insurance Providers Payer Name Payer Address Payer Phone Subscriber Number Group Number Insured Name Patient Relationship to Insured Coverage Start Date Coverage End Date [facility] [address] [place] [address] [id number] ALEX MUELLER Child - Insured has Financial Responsibility
== END 2025-03-29 17:36 | disposition home or self-care (01) ==
LOC: HO.HMCH 16:33
PROVIDERS: PCP Internal Medicine; Visit Provider Internal Medicine
DX: R00.2 Palpitations (principal); R03.0 Elevated blood-pressure reading, without diagnosis of hypertension; E55.9 Vitamin D deficiency, unspecified; K58.2 Mixed irritable bowel syndrome; K59.00 Constipation, unspecified; F41.9 Anxiety disorder, unspecified; E66.3 Overweight

== ENCOUNTER → 2025-03-29 16:33 | Outpatient (BNVA) | payer OTHER, SELFPAY | PROVIDERS: PCP Internal Medicine; Visit Provider Internal Medicine | DX: R00.2 Palpitations (principal); R03.0 Elevated blood-pressure reading, without diagnosis of hypertension; E55.9 Vitamin D deficiency, unspecified; K58.2 Mixed irritable bowel syndrome; K59.00 Constipation, unspecified; F41.9 Anxiety disorder, unspecified; E66.3 Overweight; D64.9 Anemia, unspecified; R63.4 Abnormal weight loss; E78.00 Pure hypercholesterolemia, unspecified; Z68.27 Body mass index [BMI] 27.0-27.9, adult | CPT/HCPCS: 96127; 99212 ==